=== PATIENT | male | born 1980 | race Caucasian/White ===

== ENCOUNTER → 2017-03-05 | Outpatient (CLI) | payer BC ==
[2017-03-05 12:57] LABS: ALBUMIN 3.9 GM/DL (3.2-5.2); ALKALINE PHOSPHATASE 67 U/L (45-117); ALT/SGPT 42 U/L (12-78); ANION GAP 6 MEQ/L (8-16); AST/SGOT 22 U/L (15-37); BILIRUBIN,TOTAL 0.5 MG/DL (0.2-1.0); BLOOD UREA NITROGEN 12 MG/DL (7-18); CALCIUM LEVEL 8.4 MG/DL (8.5-10.1); CARBON DIOXIDE LEVEL 28 MEQ/L (21-32); CHLORIDE LEVEL 107 MEQ/L (98-107); CHOLESTEROL LEVEL 179 MG/DL (<200); CREATININE FOR GFR 1.03 MG/DL (0.70-1.30); GLOMERULAR FILTRATION RATE > 60.0 (>60); GLUCOSE, FASTING 104 MG/DL (70-105); POTASSIUM SERUM 4.1 MEQ/L (3.5-5.1); SODIUM LEVEL 141 MEQ/L (136-145); TOTAL PROTEIN 6.9 GM/DL (6.4-8.2); TRIGLYCERIDES LEVEL 288 MG/DL (<150)
[2017-03-05 13:24] LABS: WHITE BLOOD COUNT 4.5 K/mm3 (4.0-10.0)
[2017-03-05 13:25] LABS: BASO % 0.6 % (0.0-1.0); EOS # 0.1 K/mm3 (0.0-0.50); EOS % 2.6 % (0.0-3.0); LARGE UNSTAINED CELL # 0.1 K/mm3 (0.0-0.4); LARGE UNSTAINED CELL % 1.6 % (0.0-4.0); LYMPH # 1.6 K/mm3 (1.5-4.5); LYMPH % 33.4 % (24.0-44.0); MEAN CORPUSCULAR HEMOGLOBIN 31.6 pg (27.0-33.0); MEAN CORPUSCULAR HGB CONC 35.4 g/dl (32.0-36.5); MEAN CORPUSCULAR VOLUME 89.2 fl (80.0-96.0); MONO # 0.3 K/mm3 (0.0-0.8); MONO % 7.2 % (0.0-5.0); NEUTROPHILS # 2.4 K/mm3 (1.8-7.7); NEUTROPHILS % 54.6 % (36.0-66.0); PLATELET COUNT, AUTOMATED 166 k/mm3 (150-450); RED CELL DISTRIBUTION WIDTH 12.9 % (11.5-14.5)
== END ==
LOC: M WUC 08:30
PROVIDERS: ATTEND Physician Assistant Medical
DX: I10 Essential (primary) hypertension (principal)

== ENCOUNTER → 2017-04-16 | Outpatient (REF) | payer BC | LOC: M LAB REF 11:53 | PROVIDERS: ATTEND Physician Assistant Medical | DX: K62.5 Hemorrhage of anus and rectum (principal) ==

== ENCOUNTER → 2018-01-23 | Outpatient (CLI) | payer BC ==
[2018-01-23 13:38] LABS: BASO % 0.8 % (0.0-1.0); EOS # 0.1 10^3/uL (0.0-0.50); HEMATOCRIT 43.6 % (42.0-52.0); HEMOGLOBIN 14.9 g/dl (13.5-17.5); IMMATURE GRANULOCYTE % 0.2 % (0-3.0); LYMPH # 2.2 10^3/uL (1.5-4.5); MEAN CORPUSCULAR HEMOGLOBIN 29.6 pg (27.0-33.0); MEAN CORPUSCULAR HGB CONC 34.2 g/dl (32.0-36.5); MEAN CORPUSCULAR VOLUME 86.5 fl (80.0-96.0); MONO # 0.5 10^3/uL (0.0-0.8); MONO % 8.9 % (0.0-5.0); NEUTROPHILS # 2.2 10^3/uL (1.8-7.7); NEUTROPHILS % 44.1 % (36.0-66.0); PLATELET COUNT, AUTOMATED 185 10^3/uL (150-450); RED BLOOD COUNT 5.04 10^6/uL (4.30-6.10); RED CELL DISTRIBUTION WIDTH 12.9 % (11.5-14.5); WHITE BLOOD COUNT 5.1 10^3/uL (4.0-10.0)
[2018-01-23 13:51] LABS: ALBUMIN/GLOBULIN RATIO 1.33 (1.00-1.93); ALKALINE PHOSPHATASE 65 U/L (45-117); ALT/SGPT 38 U/L (12-78); ANION GAP 9 MEQ/L (8-16); AST/SGOT 20 U/L (7-37); BILIRUBIN,TOTAL 0.6 MG/DL (0.2-1.0); BLOOD UREA NITROGEN 17 MG/DL (7-18); CALCIUM LEVEL 8.5 MG/DL (8.5-10.1); CARBON DIOXIDE LEVEL 25 MEQ/L (21-32); CHLORIDE LEVEL 107 MEQ/L (98-107); CHOLESTEROL LEVEL 171 MG/DL (<200); CHOLESTEROL RISK RATIO 5.181 (<5); CREATININE FOR GFR 1.03 MG/DL (0.70-1.30); GLOMERULAR FILTRATION RATE > 60.0 (>60); GLUCOSE, FASTING 100 MG/DL (70-100); HDL CHOLESTEROL 33 MG/DL (>40); LDL CHOLESTEROL 103.8 MG/DL (<100); NON-HDL-C 138 MG/DL; POTASSIUM SERUM 4.1 MEQ/L (3.5-5.1); SODIUM LEVEL 141 MEQ/L (136-145); TRIGLYCERIDES LEVEL 171 MG/DL (<150)
[2018-01-24 09:35] LABS: CONTROL LINE HPYORI INT CTR LINE PRESENT; H PYLORI QUALITATIVE IgG NEGATIVE (NEGATIVE)
== END ==
LOC: M WUC 09:43
DX: K21.9 Gastro-esophageal reflux disease without esophagitis (principal); I10 Essential (primary) hypertension
CPT/HCPCS: 80053

== ENCOUNTER → 2019-04-22 | Outpatient (CLI) | payer BC ==
[2019-04-22 08:30] LABS: BASO % 0.9 % (0.0-1.0); EOS # 0.1 10^3/uL (0.0-0.5); EOS % 2.7 % (0.0-3.0); HEMATOCRIT 47.7 % (42.0-52.0); HEMOGLOBIN 16.4 g/dl (13.5-17.5); LYMPH # 1.8 10^3/uL (1.5-5.0); LYMPH % 40.4 % (24.0-44.0); MEAN CORPUSCULAR HEMOGLOBIN 30.1 pg (27.0-33.0); MEAN CORPUSCULAR HGB CONC 34.4 g/dl (32.0-36.5); MEAN CORPUSCULAR VOLUME 87.5 fl (80.0-96.0); MONO # 0.4 10^3/uL (0.0-0.8); MONO % 9.5 % (0.0-5.0); NEUTROPHILS # 2.1 10^3/uL (1.5-8.5); NEUTROPHILS % 45.8 % (36.0-66.0); PLATELET COUNT, AUTOMATED 183 10^3/uL (150-450); RED BLOOD COUNT 5.45 10^6/uL (4.30-6.10); WHITE BLOOD COUNT 4.5 10^3/uL (4.0-10.0)
[2019-04-22 08:52] LABS: ALT/SGPT 37 U/L (12-78); BILIRUBIN,TOTAL 0.6 MG/DL (0.2-1.0); BLOOD UREA NITROGEN 14 MG/DL (7-18); CALCIUM LEVEL 8.5 MG/DL (8.5-10.1); CARBON DIOXIDE LEVEL 27 MEQ/L (21-32); CHLORIDE LEVEL 106 MEQ/L (98-107); CHOLESTEROL LEVEL 210 MG/DL (<200); CHOLESTEROL RISK RATIO 6.176 (<5); GLOMERULAR FILTRATION RATE > 60.0 (>60); GLUCOSE, FASTING 107 MG/DL (70-100); HDL CHOLESTEROL 34 MG/DL (>40); LDL CHOLESTEROL 115 MG/DL (<100); NON-HDL-C 176 MG/DL; POTASSIUM SERUM 4.4 MEQ/L (3.5-5.1); SODIUM LEVEL 140 MEQ/L (136-145); TOTAL PROTEIN 7.3 GM/DL (6.4-8.2); TRIGLYCERIDES LEVEL 307 MG/DL (<150)
== END ==
LOC: M LAB 07:25
PROVIDERS: ATTEND Physician Assistant Medical
DX: I10 Essential (primary) hypertension (principal)

== ENCOUNTER → 2020-01-06 | Outpatient (CLI) | payer BC ==
[2020-01-06 07:22] LABS: ALT/SGPT 33 U/L (12-78); BILIRUBIN,TOTAL 0.3 MG/DL (0.2-1.0); BLOOD UREA NITROGEN 15 MG/DL (7-18); CALCIUM LEVEL 8.5 MG/DL (8.5-10.1); CARBON DIOXIDE LEVEL 26 MEQ/L (21-32); CHLORIDE LEVEL 106 MEQ/L (98-107); CHOLESTEROL LEVEL 221 MG/DL (<200); CHOLESTEROL RISK RATIO 7.892 (<5); CREATININE FOR GFR 1.08 MG/DL (0.70-1.30); GLOMERULAR FILTRATION RATE > 60.0 (>60); GLUCOSE, FASTING 110 MG/DL (70-100); HDL CHOLESTEROL 28 MG/DL (>40); LDL CHOLESTEROL 121 MG/DL (<100); NON-HDL-C 193 MG/DL; POTASSIUM SERUM 4.2 MEQ/L (3.5-5.1); SODIUM LEVEL 139 MEQ/L (136-145); TRIGLYCERIDES LEVEL 360 MG/DL (<150)
== END ==
LOC: M LAB 06:16
PROVIDERS: ATTEND Physician Assistant
DX: I10 Essential (primary) hypertension (principal)

== ENCOUNTER → 2020-04-15 | Outpatient (CLI) | payer BC ==
[2020-04-15 07:11] LABS: ALT/SGPT 33 U/L (12-78); BILIRUBIN,TOTAL 0.6 MG/DL (0.2-1.0); BLOOD UREA NITROGEN 17 MG/DL (7-18); CALCIUM LEVEL 8.9 MG/DL (8.5-10.1); CARBON DIOXIDE LEVEL 27 MEQ/L (21-32); CHLORIDE LEVEL 105 MEQ/L (98-107); CHOLESTEROL LEVEL 210 MG/DL (<200); CHOLESTEROL RISK RATIO 6.363 (<5); CREATININE FOR GFR 1.03 MG/DL (0.70-1.30); GLOMERULAR FILTRATION RATE > 60.0 (>60); GLUCOSE, FASTING 102 MG/DL (70-100); HDL CHOLESTEROL 33 MG/DL (>40); LDL CHOLESTEROL 129 MG/DL (<100); NON-HDL-C 177 MG/DL; POTASSIUM SERUM 4.4 MEQ/L (3.5-5.1); SODIUM LEVEL 138 MEQ/L (136-145); TOTAL PROTEIN 7.2 GM/DL (6.4-8.2); TRIGLYCERIDES LEVEL 240 MG/DL (<150)
== END ==
LOC: M LAB 06:03
PROVIDERS: ATTEND Physician Assistant
DX: E78.2 Mixed hyperlipidemia (principal)

== ENCOUNTER 2020-08-03 11:13 | Emergency (ER) | payer BC ==
[~2020-08-03] VITALS: Ht 177.8 cm; Wt 113.0 kg
--- OUTSIDE RECORDS SUMMARY | 2020-08-03 11:22 | CCD | Continuity of Care Document ---
Author Author Steven DOBBINS Organization Unknown Address [address] [place] [address] [place] [address] Phone [phone] Care Team Providers Care Pbx Operator Name Role Phone Complete Family Care - Family Medicine AUTM [phone] [employer] [facility] [phone] Problems Description No Information Available Social History Type Date Description Comments Sex Unknown ETOH Use Occasionally consumes alcohol Tobacco Use Start: Unknown Patient has never smoked Smoking Status Reviewed: 07/25/20 Patient has never smoked Allergies, Adverse Reactions, Alerts Description No Known Drug Allergies Medications Active Medications SIG Qnty Indications Ordering Provide r Date Claritin 10mg Tablets 1 by mouth every day Unknown Lisinopril 10mg Tablets 1 by mouth every day Unknown Medications Administered in Office Medication SIG Qnty Indications Ordering Provider Date Allergy Injection 2 Or More Injection Arturo Colunga, P.A. 03/06/2010 Allergy Injection 2 Or More Injection Arturo Colunga, P.A. 02/27/2010 Allergy Injection 2 Or More Injection Arturo Colunga P.A. 02/20/2010 Allergy Injection 2 Or More Injection Arturo Colunga P.A. 02/13/2010 Allergy Injection 2 Or More Injection Arturo Colunga P.A. 02/06/2010 Allergy Injection 2 Or More Injection Arturo Colunga P.A. 01/30/2010 Allergy Injection 2 Or More Injection Arturo Colunga, P.A. 01/23/2010 Allergy Injection 2 Or More Injection Italo Zapata, P.A. 01/17/2010 Allergy Injection 2 Or More Injection Italo Zapata, P.A. 01/10/2010 Allergy Injection 2 Or More Injection Arturo Colunga P.A. 01/02/2010 Allergy Injection 2 Or More Injection Arturo Colunga, P.A. 12/26/2009 Allergy Injection 2 Or More Injection Arturo Colunga, P.A. 12/19/2009 Allergy Injection 2 Or More Injection Italo Zapata, P.A. 12/13/2009 Allergy Injection 2 Or More Injection Arturo Colunga, P.A. 12/05/2009 Allergy Injection 2 Or More Injection Arturo Colunga, P.A. 11/28/2009 Allergy Injection 2 Or More Injection Arturo Colunga, P.A. 11/21/2009 Allergy Injection 2 Or More Injection Arturo Colunga, P.A. 11/14/2009 Allergy Injection 2 Or More Injection Arturo Colunga, P.A. 11/07/2009 Allergy Injection 2 Or More Injection Guilherme Avila, P.A. 11/03/2009 Allergy Injection 2 Or More Injection Arturo Colunga, P.A. 10/31/2009 Allergy Injection 2 Or More Injection Arturo Colunga, P.A. 10/27/2009 Allergy Injection 2 Or More Injection Arturo Colunga, P.A. 10/24/2009 Allergy Injection 2 Or More Injection Arturo Colunga, P.A. 10/20/2009 Allergy Injection 2 Or More Injection Arturo Colunga, P.A. 10/17/2009 Allergy Injection 2 Or More Injection Arturo Colunga, P.A. 10/13/2009 Allergy Injection 2 Or More Injection Arturo Colunga, P.A. 10/10/2009 Allergy Injection 2 Or More Injection Arturo Colunga, P.A. 10/06/2009 Allergy Injection 2 Or More Injection Arturo Colunga, P.A. 10/03/2009 Allergy Injection 2 Or More Injection Arturo Colunga, P.A. 09/29/2009 Allergy Injection 2 Or More Injection Arturo Colunga, P.A. 09/26/2009 Allergy Injection 2 Or More Injection Arturo Colunga, P.A. 09/22/2009 Allergy Injection 2 Or More Injection Arturo Colunga, P.A. 09/19/2009 Allergy Injection 2 Or More Injection Arturo Colunga, P.A. 09/15/2009 Allergy Injection 2 Or More Injection Arturo Colunga, P.A. 09/12/2009 Allergy Injection 2 Or More Injection Arturo Colunga, P.A. 09/08/2009 Allergy Injection 2 Or More Injection Arturo Colunga, P.A. 09/05/2009 Allergy Injection 2 Or More Injection Arturo Colunga, P.A. 09/01/2009 Allergy Injection 2 Or More Injection Arturo Colunga, P.A. 08/29/2009 Allergy Injection 2 Or More Injection Arturo Colunga, P.A. 08/25/2009 Allergy Injection 2 Or More Injection Arturo Colunga, P.A. 08/22/2009 Allergy Injection 2 Or More Injection Arturo Colunga, P.A. 08/18/2009 Allergy Injection 2 Or More Injection Arturo Colunga, P.A. 08/15/2009 Allergy Injection 2 Or More Injection Arturo Colunga, P.A. 08/11/2009 Allergy Injection 2 Or More Injection Arturo Colunga, P.A. 08/08/2009 Allergy Injection 2 Or More Injection Arturo Colunga, P.A. 08/04/2009 Allergy Injection 2 Or More Injection Arturo Colunga, P.A. 08/01/2009 Allergy Injection 2 Or More Injection Arturo Colunga, P.A. 07/28/2009 Allergy Injection Single Injection Italo Zapata, P.A. 05/06/2009 Allergy Injection Single Injection Italo Zapata, P.A. 04/19/2009 Allergy Injection Single Injection Paolo Dockery, GEOFF 03/17/2009 Allergy Injection Single Injection Arturo Colunga, P.A. 02/18/2009 Allergy Injection Single Injection Arturo Colunga, P.A. 01/13/2009 Allergy Injection Single Injection Italo Zapata, P.A. 12/09/2008 Allergy Injection Single Injection Alka Polanco, GEFOF 11/09/2008 Allergy Injection Single Injection Arturo Colunga, P.A. 10/11/2008 Allergy Injection Single Injection Arturo Colunga, P.A. 09/09/2008 Allergy Injection Single Injection Arturo Colunga, P.A. 08/16/2008 Allergy Injection Single Injection Arturo Colunga, P.A. 07/12/2008 Allergy Injection Single Injection Arturo Colunga, P.A. 06/15/2008 Allergy Injection Single Injection Arturo Colunga, P.A. 05/14/2008 Allergy Injection Single Injection Paolo Dockery, GEOFF 04/15/2008 Allergy Injection Single Injection Guilherme Avila, P.A. 03/17/2008 Immunizations Description No Information Available Vital Signs Date Vital Result Comment 07/25/2020 6:26pm BP Systolic 156 mmHg BP Diastolic 90 mmHg Heart Rate 68 /min Respiratory Rate 17 /min O2 % BldC Oximetry 97 % Body Temperature 97.9 F Weight 240.00 lb Height 70 inches 5'10" BMI (Body Mass Index) 34.4 kg/m2 Pain Level 2 04/11/2020 9:29am BP Systolic 132 mmHg BP Diastolic 77 mmHg Heart Rate 65 /min O2 % BldC Oximetry 97 % Body Temperature 98.2 F Weight 240.00 lb Height 70 inches 5'10" BMI (Body Mass Index) 34.4 kg/m2 Pain Level 2 Results Description No Information Available Procedures Description No Information Available Medical Devices Description No Information Available Encounters Type Date Location Provider Dx Diagnosis Office Visit 07/25/2020 5:35p Main Office GEOFF Powell J06 .9 Acute upper respiratory infection, unspecified Z20.828 Contact w and exposure to ot h viral communicable diseases Office Visit 04/11/2020 9:20a Main Office GEOFF Mayer J00 Acute nasopharyngitis [common cold] Z20.828 Contact w and exposure to ot h viral communicable diseases Assessments Date Code Description Provider 07/25/2020 J06.9 Acute upper respiratory infectio n, unspecified GEOFF Powell 07/25/2020 Z20.828 Contact with and (burton spected) exposure to other viral communicable diseases GEOFF Powell 04/11/2020 J00 Acute nasopharyngitis [common co ld] GEOFF Mayer 04/11/2020 Z20.828 Contact with and (burton spected) exposure to other viral communicable diseases GEOFF Mayer Plan of Treatment No Information Available Functional Status Description No Information Available Mental Status Description No Information Available Referrals Description No Information Available
--- OUTSIDE RECORDS SUMMARY | 2020-08-03 11:22 | CCD | Continuity of Care Document ---
Author Author Steven DOBBINS Organization Unknown Address [address] [place] [address] [place] [address] Phone [phone] Care Team Providers Care Muck Hauler Name Role Phone Complete Family Care - Family Medicine AUTM [phone] [employer] [facility] [phone] Problems Description No Information Available Social History [...] P.A. 02/18/2009 Allergy Injection Single Injection Arturo Colnuga, P.A. 01/13/2009 Allergy Injection Single Injection Italo Zapata, P.A. 12/09/2008 Allergy Injection Single Injection Alka Polanco, GEOFF 11/09/2008 Allergy Injection Single Injection Arturo Colunga, [...] Available Vital Signs Date Vital Result Comment 08/01/2020 11:06am BP Systolic 134 mmHg BP Diastolic 84 mmHg Heart Rate 51 /min Respiratory Rate 20 /min O2 % BldC Oximetry 97 % Body Temperature 98.0 F Pain Level 0 07/25/2020 6:26pm BP Systolic 156 mmHg BP [...] communicable diseases Assessments Date Code Description Provider 08/01/2020 Z20.828 Contact with and (burton spected) exposure to other viral communicable diseases Castro Dobbins, PFlorina 07/25/2020 J06.9 Acute upper respiratory infectio n, [...]
--- OUTSIDE RECORDS SUMMARY | 2020-08-03 11:23 | CCD | Continuity of Care Document ---
Author Author Steven MAGAÑA MD Organization Unknown Address [address] [place] [address] [place] [address] Phone [phone] Care Team Providers Care Resin Painter Name Role Phone Complete Family Care - Family Medicine AUTM [phone] [facility] AUTM [phone] Problems Description No Information Available Social History [...] 2 Or More Injection Arturo Colunga, P.A. 02/20/2010 Allergy Injection 2 Or More Injection Arturo Colunga, P.A. 02/13/2010 Allergy Injection 2 Or More Injection Arturo Colunga, P.A. 02/06/2010 Allergy Injection 2 Or More Injection Arturo Colunga, P.A. 01/30/2010 Allergy Injection 2 Or More Injection Arturo Colunga, P.A. 01/23/2010 Allergy Injection 2 Or More Injection Italo Zapata, P.A. 01/17/2010 Allergy Injection 2 Or More Injection Italo Zapata, P.A. 01/10/2010 Allergy Injection 2 Or More Injection Arturo Colunga, P.A. 01/02/2010 Allergy Injection 2 Or More [...] Allergy Injection 2 Or More Injection Arturo Oclunga, P.A. 08/15/2009 Allergy Injection 2 Or More [...] P.A. 04/19/2009 Allergy Injection Single Injection Paolo Magaña, GEOFF 03/17/2009 Allergy Injection Single Injection Arturo [...] P.A. 05/14/2008 Allergy Injection Single Injection Paolo Magaña, GEOFF 04/15/2008 Allergy Injection Single Injection Guilherme [...]
--- OUTSIDE RECORDS SUMMARY | 2020-08-03 11:23 | CCD | Continuity of Care Document ---
Author Author Steven MAGAÑA CT Organization Unknown Address [address] [place] [address] [place] [address] Phone [phone] Care Team Providers Care Foundation Director Name Role Phone Complete Family Care - Family Medicine AUTM [phone] [facility] AUTM [phone] Problems Description No Information Available Social History [...]
--- OUTSIDE RECORDS SUMMARY | 2020-08-03 11:23 | CCD ---
Author Author [facility] Organization [facility] Address Unknown Phone Unavailable Care Team Providers Care Forensic Pathologist Name Role Phone Scordo, M Arin PA Unavailable Unavailable Scordo, M Arin PA Unavailable Unavailable Scordo, M Arin PA Unavailable Unavailable Scordo, M Arin PA Unavailable Unavailable Scordo, M Arin PA Unavailable Unavailable Scordo, M Arin PA Unavailable Unavailable Scordo, M Arin PA Unavailable Unavailable Scordo, M Arin PA Unavailable Unavailable Scordo, M Arin PA Unavailable Unavailable Scordo, M Arin PA Unavailable Unavailable Scordo, M Arin PA Unavailable Unavailable Scordo, M Arin PA Unavailable Unavailable Scordo, M Arin PA Unavailable Unavailable Scordo, M Arin PA Unavailable Unavailable Scordo, M Arin PA Unavailable Unavailable Scordo, M Arin PA Unavailable Unavailable Scordo, M Arin PA Unavailable Unavailable Scordo, M Arin PA Unavailable Unavailable Scordo, M Arin PA Unavailable Unavailable Scordo, M Arin PA Unavailable Unavailable Scordo, M Arin PA Unavailable Unavailable Scordo, M Arin PA Unavailable Unavailable Scordo, M Arin PA Unavailable Unavailable Scordo, M Arin PA Unavailable Unavailable Scordo, M Arin PA Unavailable Unavailable Scordo, M Arin PA Unavailable Unavailable Scordo, M Arin PA Unavailable Unavailable Scordo, M Arin PA Unavailable Unavailable Scordo, M Arin PA Unavailable Unavailable Scordo, M Arin PA Unavailable Unavailable Scordo, M Arin PA Unavailable Unavailable Scordo, M Arin PA Unavailable Unavailable Scordo, M Arin PA Unavailable Unavailable Scordo, M Arin PA Unavailable Unavailable Scordo, M Arin PA Unavailable Unavailable Scordo, M Arin PA Unavailable Unavailable Scordo, M Arin PA Unavailable Unavailable Scordo, M Arin PA Unavailable Unavailable Scordo, M Arin PA Unavailable Unavailable Scordo, M Arin PA Unavailable Unavailable Petrancosta, Bethel Sadia PA-C Unavailable Unavailabl e Petrancosta, Bethel Sadia PA-C Unavailable Unavailabl e Petrancosta, Bethel Sadia PA-C Unavailable Unavailabl e Petrancosta, Bethel Sadia PA-C Unavailable Unavailabl e Petrancosta, Bethel Sadia PA-C Unavailable Unavailabl e Petrancosta, Bethel Sadia PA-C Unavailable Unavailabl e Petrancosta, Bethel Sadia PA-C Unavailable Unavailabl e Petrancosta, Bethel Sadia PA-C Unavailable Unavailabl e Petrancosta, Bethel Sadia PA-C Unavailable Unavailabl e Petrancosta, Bethel Sadia PA-C Unavailable Unavailabl e Petrancosta, Bethel Sadia PA-C Unavailable Unavailabl e Petrancosta, Bethel Sadia PA-C Unavailable Unavailabl e Petrancosta, Bethel Sadia PA-C Unavailable Unavailabl e Petrancosta, Bethel Sadia PA-C Unavailable Unavailabl e Petrancosta, Bethel Sadia PA-C Unavailable Unavailabl e Petrancosta, Bethel Sadia PA-C Unavailable Unavailabl e Petrancosta, Bethel Sadia PA-C Unavailable Unavailabl e Petrancosta, Bethel Sadia PA-C Unavailable Unavailabl e Petrancosta, Bethel Sadia PA-C Unavailable Unavailabl e Petrancosta, Bethel Sadia PA-C Unavailable Unavailabl e Petrancosta, Bethel Sadia PA-C Unavailable Unavailabl e Petrancosta, Bethel Sadia PA-C Unavailable Unavailabl e Petrancosta, Bethel Sadia PA-C Unavailable Unavailabl e RING, K ISMA PA Unavailable Unavailable RING, K ISMA PA Unavailable Unavailable RING, K ISMA PA Unavailable Unavailable RING, K ISMA PA Unavailable Unavailable RING, K ISMA PA Unavailable Unavailable RING, K ISMA PA Unavailable Unavailable RING, K ISMA PA Unavailable Unavailable RING, K ISMA PA Unavailable Unavailable RING, K ISMA PA Unavailable Unavailable RING, K ISMA PA Unavailable Unavailable RING, K ISMA PA Unavailable Unavailable RING, K ISMA PA Unavailable Unavailable RING, K ISMA PA Unavailable Unavailable RING, K ISMA PA Unavailable Unavailable RING, K ISMA PA Unavailable Unavailable RING, K ISMA PA Unavailable Unavailable RING, K ISMA PA Unavailable Unavailable RING, K ISMA PA Unavailable Unavailable RING, K ISMA PA Unavailable Unavailable RING, K ISMA PA Unavailable Unavailable LETTIERE, A SWEETIE PA Unavailable Unavailable LETTIERE, A SWEETIE PA Unavailable Unavailable LETTIERE, A SWEETIE PA Unavailable Unavailable LETTIERE, A SWEETIE PA Unavailable Unavailable LETTIERE, A SWEETIE PA Unavailable Unavailable LETTIERE, A SWEETIE PA Unavailable Unavailable LETTIERE, A SWEETIE PA Unavailable Unavailable LETTIERE, A SWEETIE PA Unavailable Unavailable LETTIERE, A SWEETIE PA Unavailable Unavailable LETTIERE, A SWEETIE PA Unavailable Unavailable LETTIERE, A SWEETIE PA Unavailable Unavailable LETTIERE, A SWEETIE PA Unavailable Unavailable LETTIERE, A SWEETIE PA Unavailable Unavailable LETTIERE, A SWEETIE PA Unavailable Unavailable LETTIERE, A SWEETIE PA Unavailable Unavailable LETTIERE, A SWEETIE PA Unavailable Unavailable LETTIERE, A SWEETIE PA Unavailable Unavailable LETTIERE, A SWEETIE PA Unavailable Unavailable LETTIERE, A SWEETIE PA Unavailable Unavailable LETTIERE, A SWEETIE PA Unavailable Unavailable LETTIERE, A SWEETIE PA Unavailable Unavailable LETTIERE, A SWEETIE PA Unavailable Unavailable LETTIERE, A SWEETIE PA Unavailable Unavailable LETTIERE, A SWEETIE PA Unavailable Unavailable LETTIERE, A SWEETIE PA Unavailable Unavailable LETTIERE, A SWEETIE PA Unavailable Unavailable LETTIERE, A SWEETIE PA Unavailable Unavailable LETTIERE, A SWEETIE PA Unavailable Unavailable LETTIERE, A SWEETIE PA Unavailable Unavailable Re-disclosure Warning The records that you are about to access may contain information from federally-assisted alcohol or drug abuse programs. If such information is present, then the following federally mandated warning applies: This information has been disclosed to you from records protected by federal confidentiality rules (42 CFR part 2). The federal rules prohibit you from making any further disclosure of this information unless further disclosure is expressly permitted by the written consent of the person to whom it pertains or as otherwise permitted by 42 CFR part 2. A general authorization for the release of medical or other information is NOT sufficient for this purpose. The Federal rules restrict any use of the information to criminally investigate or prosecute any alcohol or drug abuse patient.The records that you are about to access may contain highly sensitive health information, the redisclosure of which is protected by Article 27-F of the [place] [facility] Public Health law. If you continue you may have access to information: Regarding HIV / AIDS; Provided by facilities licensed or operated by the [facility] Office of Mental Health; or Provided by the [facility] Office for People With Developmental Disabilities. If such information is present, then the following [facility] mandated warning applies: This information has been disclosed to you from confidential records which are protected by state law. State law prohibits you from making any further disclosure of this information without the specific written consent of the person to whom it pertains, or as otherwise permitted by law. Any unauthorized further disclosure in violation of state law may result in a fine or half-way sentence or both. A general authorization for the release of medical or other information is NOT sufficient authorization for further disc losure. Family History Family Member Name Family Member Gender Family Member Status Date o f Status Description Data Source(s) Unknown Male Problem [facility] ([facility] Encounters Encounter Providers Location Date Indications Data Source(s ) Outpatient Attender: SWEETIE Avila Prim dewey 07/25/2020 04:35:00 PM EST [facility] ([facility], [facility]) Outpatient Attender: Sadia Loyd PA-C Main Office 04/20/2020 08:15:00 AM EDT [facility] ([facility] Outpatient Attender: ISMA Avila Primary 04/11/2020 09:20:00 AM EDT [facility] ([facility], [facility]) Outpatient Attender: Arin TELLEZ Main Office 01/07/2020 08:40:00 AM EDT [facility] ([facility] Immunizations Vaccine Date Status Description Data Source(s) New in 2012. IIV4 04/20/2020 08:18:00 AM EDT completed [facility] ([facility] Medications Medication Brand Name Start Date Product Form Dose Route Admi nistrative Instructions Pharmacy Instructions Status Indications Reaction Description Data Source(s) 40 mg 07/12/2020 12:00:00 AM EST tablet 90 TAKE ONE TABLET BY MOUTH EVERY EVENING FOR BLOOD PRESSURE TAKE ONE TABLET BY MOUTH EVERY EVENING F OR BLOOD PRESSURE SOLD: 07/18/2020 [facility] meloxicam 7.5 MG Oral Tablet Meloxicam 04/20/2020 12:00:00 AM EDT ORAL active [facility] ([facility] meloxicam 7.5 MG Oral Tablet MELOXICAM 04/20/2020 12:00:00 AM EDT tabl et 7 TAKE ONE TABLET BY MOUTH EVERY DAY TAKE ONE TABLET BY MOUTH EVERY DAY SOLD: 04/20/2020 [facility] 40 mg 04/23/2019 12:00:00 AM EDT tablet 90 TAKE ONE TABLET BY MOUTH EVERY EVENING FOR BLOOD PRESSURE TAKE ONE TABLET BY MOUTH EVERY EVENING F OR BLOOD PRESSURE SOLD: 10/28/2019 [facility] 40 mg 04/23/2019 12:00:00 AM EDT tablet 90 TAKE ONE TABLET BY MOUTH EVERY EVENING FOR BLOOD PRESSURE TAKE ONE TABLET BY MOUTH EVERY EVENING F OR BLOOD PRESSURE SOLD: 01/27/2020 [facility] 40 mg 04/23/2019 12:00:00 AM EDT tablet 90 TAKE ONE TABLET BY MOUTH EVERY EVENING FOR BLOOD PRESSURE TAKE ONE TABLET BY MOUTH EVERY EVENING F OR BLOOD PRESSURE SOLD: 08/01/2019 [facility] Insurance Providers Payer name Policy type / Coverage type Policy ID Covered green party ID Covered green party's relationship to taylor Policy [place] Plan Information [employer] [place]/307 [id number] [id number] [place] [place]/307 [id number] [place]/307 [id number] [id number] [facility] [place] [id number] Family Dependent [id number] [facility] ([facility] [id number] Family Dependent [id number] BS [facility] ([facility] [id number] Family Dependent [id number] BS [facility] ([facility] [id number] Family Dependent [id number] BS [facility] ([facility] [id number] Family Dependent [id number] BS [facility] ([facility] [id number] Family Dependent [id number] BS [facility] ([facility] [id number] Family Dependent [id number] [employer] [place] O [id number] [employer] [place] 302/307 [id number] Surgeries/Procedures Procedure Description Date Indications Data Source(s) Brief Emotional/Behav Assessment W/ Scoring Doc Per Standard Inst 01/07/2020 12:00:00 AM EDT [facility] Results ID Date Data Source [id number] 08/01/2020 12:00:00 AM EST [facility] Name Value Range Interpretation Code Description Data Mora rce(s) Supporting Document(s) SARS-CoV2 Rapid Antigen Positive [facility] This lab was reported by [facility]. ID Date Data Source [id number] 07/25/2020 12:00:00 AM EST [facility] Name Value Range Interpretation Code Description Data Mora rce(s) Supporting Document(s) SARS coronavirus 2 Ag Negative [facility] This lab was ordered by [facility] and reported by [facility]. ID Date Data Source [id number] 04/15/2020 06:09:00 AM EDT [facility] ([facility] Name Value Range Interpretation Code Description Data Mora rce(s) Supporting Document(s) Triglycerides Level 240 mg/dL [facility] ([facility] ASCVD 2.8% HDL Cholesterol 33 mg/dL [facility] ASCVD 2.8% Cholesterol Level 210 mg/dL [facility] ([facility] ASCVD 2.8% Cholesterol Risk Ratio 6.363 [facility] ([facility] ASCVD 2.8% Non-HDL-C 177 mg/dL [facility] ASCVD 2.8% LDL Cholesterol 129 mg/dL [facility] ([facility] ASCVD 2.8% ID Date Data Source [id number] 04/15/2020 06:09:00 AM EDT [facility] ([facility] Name Value Range Interpretation Code Description Data Mora rce(s) Supporting Document(s) Glucose, Fasting 102 mg/dL 70-100 [facility] ([facility] ASCVD 2.8% Creatinine For GFR 1.03 mg/dL 0.70-1.30 [facility] ([facility] ASCVD 2.8% Glomerular Filtration Rate Laboratory test result [facility] ([facility] ASCVD 2.8% Blood Urea Nitrogen 17 mg/dL 7-18 [facility] ([facility] ASCVD 2.8% Potassium Serum 4.4 meq/L 3.5-5.1 [facility] ([facility] ASCVD 2.8% Sodium Level 138 meq/L 136-145 [facility] ([facility] ASCVD 2.8% Chloride Level 105 meq/L 98-107 [facility] ASCVD 2.8% Anion Gap 6 meq/L 8-16 [facility] ASCVD 2.8% Calcium Level 8.9 mg/dL 8.5-10.1 [facility] ([facility] ASCVD 2.8% Carbon Dioxide Level 27 meq/L 21-32 [facility] ([facility] ASCVD 2.8% Alt/SGPT 33 U/L 12-78 [facility] ASCVD 2.8% Alkaline Phosphatase 72 U/L 45-117 [facility] ([facility] ASCVD 2.8% Ast/Sgot 20 U/L 7-37 [facility] ASCVD 2.8% Albumin 4.0 GM/DL 3.2-5.2 [facility] ASCVD 2.8% Total Protein 7.2 GM/DL 6.4-8.2 [facility] ([facility] ASCVD 2.8% Bilirubin,Total 0.6 mg/dL 0.2-1.0 [facility] ([facility] ASCVD 2.8% Albumin/Globulin Ratio 1.3 [facility] ([facility] ASCVD 2.8% ID Date Data Source [id number] 01/06/2020 06:24:00 AM EDT [facility] ([facility] Name Value Range Interpretation Code Description Data Mora rce(s) Supporting Document(s) Triglycerides Level 360 mg/dL [facility] HDL Cholesterol 28 mg/dL [facility] LDL Cholesterol 121 mg/dL [facility] Cholesterol Level 221 mg/dL [facility] Cholesterol Risk Ratio 7.892 [facility] Non-HDL-C 193 mg/dL [facility] ID Date Data Source [id number] 01/06/2020 06:24:00 AM EDT [facility] ([facility] Name Value Range Interpretation Code Description Data Mora rce(s) Supporting Document(s) Glucose, Fasting 110 mg/dL 70-100 [facility] Blood Urea Nitrogen 15 mg/dL 7-18 [facility] Creatinine For GFR 1.08 mg/dL 0.70-1.30 [facility] ([facility] Glomerular Filtration Rate Laboratory test result [facility] <content>Units are mL/min/1.73 m2</content>
<content></content>
<content>Chronic Kidney Disease Staging per NK[facility]:</content>
<content></content>
<content>Stage I & II GFR >=60 Normal to Mildly Decreased</content>
<content>Stage III GFR 30-59 Moderately Decreased</content>
<content>Stage IV GFR 15-29 Severely Decreased</content>
<content>Stage V GFR <15 Very Little GFR Left</content>
<content>ESRD GFR <15 on [employer]</content>
<content></content> Potassium Serum 4.2 meq/L 3.5-5.1 [facility] Chloride Level 106 meq/L 98-107 [facility] Sodium Level 139 meq/L 136-145 [facility] Carbon Dioxide Level 26 meq/L 21-32 [facility] Anion Gap 7 meq/L 8-16 [facility] Ast/Sgot 22 U/L 7-37 [facility] Calcium Level 8.5 mg/dL 8.5-10.1 [facility] Alt/SGPT 33 U/L 12-78 [facility] Alkaline Phosphatase 63 U/L 45-117 [facility] Bilirubin,Total 0.3 mg/dL 0.2-1.0 [facility] Total Protein 7.0 GM/DL 6.4-8.2 [facility] Albumin 4.0 GM/DL 3.2-5.2 [facility] Albumin/Globulin Ratio 1.3 [facility] Procedure Social History Code Duration Value Status Description Data Source(s ) Smoking 07/25/2020 12:00:00 AM EST Patient has never smoked co mpleted Patient has never smoked [facility] ([facility]) Smoking 04/20/2020 12:00:00 AM EDT - 07/15/2000 12:00:00 AM EST Patient is a former smoker completed Patient is a former smoker [facility] Vital Signs ID Date Data Source UNK Name Value Range Interpretation Code Description Data Source(s) Body temperature 98.0 [degF] 98.0 [degF] [facility] ([facility]) Oxygen saturation in Arterial blood by Pulse oximetry 97 % 97 % [facility] Respiratory rate 20 /min 20 /min [facility] ( [facility]) Heart rate 51 /min 51 /min [facility] ([facility]) Diastolic blood pressure 84 mm[Hg] 84 mm[Hg] [facility] ([facility]) Systolic blood pressure 134 mm[Hg] 134 mm[Hg] [facility] ([facility]) Body mass index (BMI) [Ratio] 34.4 kg/m2 34.4 k g/m2 [facility] ([facility]) Body height 70 [in_i] 70 [in_i] [facility] ([facility]) 5'10" Body weight 240.00 [lb_av] 240.00 [lb_av] [facility] ([facility]) Body temperature 97.9 [degF] 97.9 [degF] [facility] ([facility]) Oxygen saturation in Arterial blood by Pulse oximetry 97 % 97 % [facility] ([facility]) Respiratory rate 17 /min 17 /min [facility] ( [facility]) Heart rate 68 /min 68 /min [facility] ([facility]) Diastolic blood pressure 90 mm[Hg] 90 mm[Hg] [facility] ([facility]) Systolic blood pressure 156 mm[Hg] 156 mm[Hg] [facility] ([facility]) Body mass index (BMI) [Ratio] 37.4 kg/m2 37.4 k g/m2 [facility] Preemption body weight 160 [lb_av] 160 [lb_av] [facility] ([facility] Oxygen saturation in Arterial blood by Pulse oximetry 98 % 98 % [facility] Body weight 253.12 [lb_av] 253.12 [lb_av] [facility] ([facility] Body height 69.0 [in_i] 69.0 [in_i] [facility] 5'9" Respiratory rate 18 /min 18 /min [facility] ( [facility] Body temperature 97.7 [degF] 97.7 [degF] [facility] Heart rate 60 /min 60 /min [facility] Diastolic blood pressure 74 mm[Hg] 74 mm[Hg] [facility] Systolic blood pressure 140 mm[Hg] 140 mm[Hg] [facility] Body mass index (BMI) [Ratio] 34.4 kg/m2 34.4 k g/m2 [facility] ([facility]) Body height 70 [in_i] 70 [in_i] [facility] ([facility]) 5'10" Body weight 240.00 [lb_av] 240.00 [lb_av] [facility] ([facility]) Body temperature 98.2 [degF] 98.2 [degF] [facility] ([facility]) Oxygen saturation in Arterial blood by Pulse oximetry 97 % 97 % [facility] ([facility]) Heart rate 65 /min 65 /min [facility] ([facility]) Diastolic blood pressure 77 mm[Hg] 77 mm[Hg] [facility] ([facility]) Systolic blood pressure 132 mm[Hg] 132 mm[Hg] [facility] Body mass index (BMI) [Ratio] 38.1 kg/m2 38.1 k g/m2 [facility] Preemption body weight 160 [lb_av] 160 [lb_av] [facility] ([facility] Oxygen saturation in Arterial blood by Pulse oximetry 98 % 98 % [facility] Body weight 258.19 [lb_av] 258.19 [lb_av] [facility] ([facility] Body height 69.0 [in_i] 69.0 [in_i] [facility] ([facility] 5'9" Respiratory rate 16 /min 16 /min [facility] ( [facility] Body temperature 97.2 [degF] 97.2 [degF] [facility] Heart rate 53 /min 53 /min [facility] Diastolic blood pressure 61 mm[Hg] 61 mm[Hg] [facility] Systolic blood pressure 125 mm[Hg] 125 mm[Hg] [facility] ([facility]
[2020-08-03] MEDS ORDERED: LISI40TA4 (11:36)
--- OUTSIDE RECORDS SUMMARY | 2020-08-03 11:53 | CCD ---
Author Author [facility] Organization [facility] Address Unknown Phone Unavailable Care Team Providers Care Carburetor Expert Name Role Phone Scordo, M Arin PA [...] Scordo, M Arin PA Unavailable Unavailable Petrancosta, Wheeler Sadia PA-C Unavailable Unavailabl e Petrancosta, Wheeler Sadia PA-C Unavailable Unavailabl e Petrancosta, Wheeler Sadia PA-C Unavailable Unavailabl e Petrancosta, Wheeler Sadia PA-C Unavailable Unavailabl e Petrancosta, Wheeler Sadia PA-C Unavailable Unavailabl e Petrancosta, Wheeler Sadia PA-C Unavailable Unavailabl e Petrancosta, Wheeler Sadia PA-C Unavailable Unavailabl e Petrancosta, Wheeler Sadia PA-C Unavailable Unavailabl e Petrancosta, Wheeler Sadia PA-C Unavailable Unavailabl e Petrancosta, Wheeler Sadia PA-C Unavailable Unavailabl e Petrancosta, Wheeler Sadia PA-C Unavailable Unavailabl e Petrancosta, Wheeler Sadia PA-C Unavailable Unavailabl e Petrancosta, Wheeler Sadia PA-C Unavailable Unavailabl e Petrancosta, Wheeler Sadia PA-C Unavailable Unavailabl e Petrancosta, Wheeler Sadia PA-C Unavailable Unavailabl e Petrancosta, Wheeler Sadia PA-C Unavailable Unavailabl e Petrancosta, Wheeler Sadia PA-C Unavailable Unavailabl e Petrancosta, Wheeler Sadia PA-C Unavailable Unavailabl e Petrancosta, Wheeler Sadia PA-C Unavailable Unavailabl e Petrancosta, Wheeler Sadia PA-C Unavailable Unavailabl e Petrancosta, Wheeler Sadia PA-C Unavailable Unavailabl e Petrancosta, Wheeler Sadia PA-C Unavailable Unavailabl e Petrancosta, Wheeler Sadia PA-C Unavailable Unavailabl e RING, K [...] is protected by Article 27-F of the [facility] Public Health law. If you continue you may have access to information: Regarding HIV / AIDS; Provided by facilities licensed or operated by the [facility] Office of Mental Health; or Provided by the [facility] Office for People With Developmental Disabilities. If such information is present, then the following [facility] mandated warning applies: This information has been [...] law may result in a fine or snf sentence or both. A general authorization for the release of medical or other information is NOT sufficient authorization for further disc losure. Family History Family Member Name Family Member Gender Family Member Status Date o f Status Description Data Source(s) Unknown Male Problem [facility] ([facility] Encounters Encounter Providers Location Date Indications Data Source(s ) Outpatient Attender: SWETEIE Avila Prim dewey 07/25/2020 04:35:00 PM EST [facility] Outpatient Attender: Sadia Loyd PA-C Main Office 04/20/2020 08:15:00 AM EDT [facility] ([facility] Outpatient Attender: ISMA Avila Primary 04/11/2020 09:20:00 AM EDT [facility] ([facility], [facility]) Outpatient Attender: Arin TELLEZ Main Office 01/07/2020 [...] type / Coverage type Policy ID Covered democrat ID Covered democrat's relationship to taylor Policy Taylor Plan Information [employer] [place]/307 [id number] [place] [id number] [place] [place]/307 [id number] [place] [id number] [place]/307 [id number] [id number] [facility] [id number] Family Dependent [id number] BS Of [facility] ([facility]) [id number] Family Dependent [id number] BS Of [facility] ([facility]) [id number] Family Dependent [id number] BS Of [facility] ([facility]) [id number] Family Dependent [id number] BS Of [facility] ([facility]) [id number] Family Dependent [id number] BS Of [facility] ([facility]) [id number] Family Dependent [id number] BS Of [facility] ([facility]) [id number] Family Dependent [id number] [place] [place] O [place]/307 [id number] [place] [place] O 302/307 [id number] Surgeries/Procedures Procedure Description Date Indications Data Source(s) Brief Emotional/Behav Assessment W/ Scoring Doc Per Standard Inst 01/07/2020 12:00:00 AM EDT [facility] Results ID Date Data Source [id number] 08/01/2020 12:00:00 AM EST [facility] Name Value Range Interpretation Code Description Data Mora rce(s) Supporting Document(s) SARS-CoV2 Rapid Antigen Positive [facility] This lab was reported by [facility]. ID Date Data Source [id number] 07/25/2020 12:00:00 AM EST [facility] Name Value Range Interpretation Code Description Data Mora rce(s) Supporting Document(s) SARS coronavirus 2 Ag Negative [facility] This lab was ordered by [facility] and reported by [facility]. ID Date Data Source [id number] 04/15/2020 06:09:00 AM EDT [facility] ([facility] [...] [facility] ASCVD 2.8% ID Date Data Source [id number] 04/15/2020 06:09:00 AM EDT [facility] ([facility] [...] [facility] ASCVD 2.8% ID Date Data Source [id number] 01/06/2020 06:24:00 AM EDT [facility] ([facility] [...] [facility] ID Date Data Source [id number] 01/06/2020 06:24:00 AM EDT [facility] ([facility] [...] Little GFR Left</content>
<content>ESRD GFR <15 on PATTERN LEASE INSPECTOR</content>
<content></content> Potassium Serum 4.2 meq/L 3.5-5.1 [facility] Chloride Level 106 meq/L 98-107 [...] co mpleted Patient has never smoked [facility] ([facility], [facility]) Smoking 04/20/2020 12:00:00 AM EDT - 07/15/2000 12:00:00 AM EST Patient is a former smoker completed Patient is a former smoker [facility] ([facility] Vital Signs ID Date Data Source UNK Name Value Range Interpretation Code Description Data Source(s) Body temperature 98.0 [degF] 98.0 [degF] [facility] ([facility], [facility]) Oxygen saturation in Arterial blood by Pulse oximetry 97 % 97 % [facility] ([facility], [facility]) Respiratory rate 20 /min 20 /min [facility] ( [facility]) Heart rate 51 /min 51 /min [facility] ([facility], [facility]) Diastolic blood pressure 84 mm[Hg] 84 mm[Hg] [facility] ([facility], [facility]) Systolic blood pressure 134 mm[Hg] 134 mm[Hg] [facility], [facility]) Body mass index (BMI) [Ratio] 34.4 kg/m2 34.4 k g/m2 [facility] ([facility], [facility]) Body height 70 [in_i] 70 [in_i] [facility] ([facility]) 5'10" Body weight 240.00 [lb_av] 240.00 [lb_av] [facility] ([facility], [facility]) Body temperature 97.9 [degF] 97.9 [degF] [facility] ([facility], [facility]) Oxygen saturation in Arterial blood by Pulse oximetry 97 % 97 % [facility] ([facility], [facility]) Respiratory rate 17 /min 17 /min [facility] ( [facility], [facility]) Heart rate 68 /min 68 /min [facility] ([facility], [facility]) Diastolic blood pressure 90 mm[Hg] 90 mm[Hg] [facility] ([facility], [facility]) Systolic blood pressure 156 mm[Hg] 156 mm[Hg] [facility] ([facility], [facility]) Body mass index (BMI) [Ratio] 37.4 kg/m2 37.4 k g/m2 [facility] Corinne body weight 160 [lb_av] 160 [lb_av] [facility] ([facility] Oxygen saturation in Arterial blood by Pulse oximetry 98 % 98 % [facility] Body weight 253.12 [lb_av] 253.12 [...] Systolic blood pressure 140 mm[Hg] 140 mm[Hg] [facility] ([facility] Body mass index (BMI) [Ratio] 34.4 kg/m2 34.4 k g/m2 [facility] Body height 70 [in_i] 70 [in_i] [facility] ([facility]) 5'10" Body weight 240.00 [lb_av] 240.00 [lb_av] [facility] ([facility]) Body temperature 98.2 [degF] 98.2 [degF] [facility] ([facility]) Oxygen saturation in Arterial blood by Pulse oximetry 97 % 97 % [facility] ([facility]) Heart rate 65 /min 65 /min [facility] ([facility]) Diastolic blood pressure 77 mm[Hg] 77 mm[Hg] [facility]) Systolic blood pressure 132 mm[Hg] 132 mm[Hg] [facility] Body mass index (BMI) [Ratio] 38.1 kg/m2 38.1 k g/m2 [facility] Corinne body weight 160 [lb_av] 160 [lb_av] [facility] [...] Systolic blood pressure 125 mm[Hg] 125 mm[Hg] [facility] ([facility]
[2020-08-03 12:43] LABS: BASO % 0.5 % (0.0-1.0); HEMATOCRIT 46.4 % (42.0-52.0); HEMOGLOBIN 15.6 g/dl (13.5-17.5); LYMPH # 0.9 10^3/uL (1.5-5.0); LYMPH % 21.4 % (24.0-44.0); MEAN CORPUSCULAR HGB CONC 33.6 g/dl (32.0-36.5); MEAN CORPUSCULAR VOLUME 86.2 fl (80.0-96.0); MONO # 0.5 10^3/uL (0.0-0.8); MONO % 11.9 % (0.0-5.0); NEUTROPHILS # 2.7 10^3/uL (1.5-8.5); NEUTROPHILS % 64.5 % (36.0-66.0); PLATELET COUNT, AUTOMATED 150 10^3/uL (150-450); RED BLOOD COUNT 5.38 10^6/uL (4.30-6.10); WHITE BLOOD COUNT 4.2 10^3/uL (4.0-10.0)
--- NOTE | 2020-08-03 12:57 | REP ---
INDICATION: COVID+, worsening SOB and pain w/ inspiration. COMPARISON: 09/04/2006 TECHNIQUE: SINGLE PORTABLE AP VIEW OF THE CHEST WAS PERFORMED. FINDINGS: There is a peripheral left upper lobe infiltrate. There is mild cardiomegaly. The mediastinal silhouette is unremarkable. IMPRESSION: Peripheral left upper lobe infiltrate.Mild cardiomegaly. <Electronically signed by Kirt Tompkins > 08/03/20 [id number]
[2020-08-03 13:07] LABS: ALBUMIN 4.1 GM/DL (3.2-5.2); ALT/SGPT 33 U/L (12-78); BILIRUBIN,TOTAL 0.4 MG/DL (0.2-1.0); BLOOD UREA NITROGEN 16 MG/DL (7-18); CALCIUM LEVEL 8.7 MG/DL (8.5-10.1); CARBON DIOXIDE LEVEL 29 MEQ/L (21-32); CHLORIDE LEVEL 107 MEQ/L (98-107); CREATININE FOR GFR 1.04 MG/DL (0.70-1.30); GLOMERULAR FILTRATION RATE > 60.0 (>60); GLUCOSE, FASTING 90 MG/DL (70-100); POTASSIUM SERUM 4.1 MEQ/L (3.5-5.1); SODIUM LEVEL 139 MEQ/L (136-145); TOTAL PROTEIN 7.3 GM/DL (6.4-8.2)
[2020-08-03] MEDS ORDERED: AZITHROMYCIN 250MG TABLET PO ONE (13:15)
[2020-08-03] MEDS ORDERED: cefTRIAXone SOD 1 GM in D5W MINI-BAG PLUS 50 ML IV ONE (13:15)
[2020-08-03] MEDS ORDERED: ISOVUE-370 76% 100ML VIAL As Ordered ONE (15:18)
--- NOTE | 2020-08-03 16:18 | REP ---
INDICATION: ELEVATED D-DIMER, COVID POS, SOB, R/O PE. COMPARISON: Radiograph 08/03/2020. TECHNIQUE: CT angiogram chest performed following the intravenous administration of 100 cc of Isovue 370. Sagittal and coronal reconstruction images are performed. The study is limited due to patient motion. FINDINGS: Lungs: There are patchy diffuse bilateral infiltrates left greater than right. Mediastinum: No adenopathy. Pulmonary arteries: No definite evidence of pulmonary embolism, but again the study is limited by patient motion. Rosie: No adenopathy. Axilla: No adenopathy. Pleura: No effusion. Heart: Mildly enlarged. Thoracic aorta: No aneurysm or dissection. Upper abdominal structures: Unremarkable. Visualized osseous structures: Unremarkable. IMPRESSION: No definite CT evidence of pulmonary embolism. Study is limited by patient motion. Diffuse patchy bilateral infiltrates left greater than right. <Electronically signed by Kirt Tompkins > 08/03/20 [id number]
[2020-08-03] MEDS ORDERED: AZIT-12 PO (16:30)
[2020-08-03 17:15] VITALS: BP 121/71
== END 2020-08-03 17:18 | disposition home or self-care (01) ==
LOC: M ED 11:13
DX: J12.82 Pneumonia due to coronavirus disease 2019 (principal); I10 Essential (primary) hypertension; Z79.899 Other long term (current) drug therapy
CPT/HCPCS: 36415; 71045; 71275; 80053; 85025; 85379; 96365; 99284; J0696; Q9967

== ENCOUNTER → 2021-01-05 | Outpatient (CLI) | payer BC ==
[~2021-01-05] MED LIST: AZIT-12 PO; LISI40TA4
--- NOTE | 2021-01-05 13:36 | REP ---
INDICATION: PAIN. COMPARISON: None. TECHNIQUE: Five views FINDINGS: There is minimal tricompartmental marginal osteophytosis. The compartments are symmetric and well maintained. There is no fracture, dislocation, or subluxation. IMPRESSION: Fairly early chronic changes as described above. <Electronically signed by Tevin Cruz > 01/05/21 [id number]
== END ==
LOC: M SOG 10:46
PROVIDERS: ATTEND Orthopaedic Surgery Sports Medicine
DX: M25.562 Pain in left knee (principal)

== ENCOUNTER → 2021-02-02 | Outpatient (CLI) | payer BC ==
--- NOTE | 2021-02-02 19:38 | REP ---
INDICATION: LT KNEE OTH TEAR OF MEDIAL MENISCUS. COMPARISON: X-ray 01/05/2021 TECHNIQUE: Axial T2 fat suppressed with coronal and sagittal PD and fat suppressed T2 sequences. FINDINGS: Both the ACL and PCL are grossly intact. There is a transverse meniscal ligament of Tena visible anterior to the PCL as anatomic normal variation. The posterior horn of the medial meniscus as oblique grade 3 signal extending to the inferior articular surface best seen on the sagittal PD sequence. I do not see loose body or osteochondral defect in the medial compartment. There is no subchondral edema, osteochondral defect and only minimal grade 1 chondromalacia noted. Medial collateral ligamentous complex was grossly intact. Medial patellar retinaculum shows mild attenuation but no tear and trace fluid deep to the retinaculum abutting the medial femoral condyle in the bursal recess. No definite popliteal fossa cyst. The lateral meniscus shows no evidence of a tear or loose body. Minimal grade 1 chondromalacia without subchondral edema cystic change. Lateral collateral ligamentous complex intact. Lateral patellofemoral retinaculum with some mild the edema deep to it and the bursal recess with small amount of fluid. The proximal tibiofibular articulation is normal. The popliteus tendon grossly unremarkable. Distal femur and tibial plateau show no fracture or focal lesions. The patella shows no bone bruise or fracture. There is chondromalacia patella with some grade 2 changes along the lateral facet. Minimal lateral patellar subluxation of only a few mm noted. Small suprapatellar effusion and fluid in the bursal recess laterally greater than medially. No loose body or osteochondral defect about the joint. A small synovial plica noted centrally and laterally. Quadriceps and patellar tendons are intact. IMPRESSION: 1. A tricompartment chondromalacia with mostly grade 1 changes and some areas of grade 2 change in the lateral patellar facet. Small effusion without loose body or osteochondral defect. Small suprapatellar plica. 2. Posterior horn medial meniscus with grade 3 signal tear communicating obliquely to the inferior articular surface best seen on the sagittal PD sequence. No popliteal fossa cyst 3. Lateral meniscus, cruciate ligaments, collateral ligamentous complexes and extensor mechanism all intact. 4. Some mild attenuation of the medial patellar retinaculum without a tear and a few mm of lateral subluxation of patella. Lateral patellar retinaculum without a tear or attenuation. There is some fluid deep to it in the lateral bursal recess. 5. No bone bruise or fracture. <Electronically signed by Daniel Curry > 02/02/211933
== END ==
LOC: M RAD 17:51
PROVIDERS: ATTEND Orthopaedic Surgery Sports Medicine
DX: S83.242A Other tear of medial meniscus, current injury, left knee, initial encounter (principal); S83.092A Other subluxation of left patella, initial encounter; M94.261 Chondromalacia, right knee; Y92.9 Unspecified place or not applicable; Y93.9 Activity, unspecified; Y99.9 Unspecified external cause status

== ENCOUNTER → 2021-04-28 | Outpatient (CLI) | payer BC | LOC: M LABSMTC 09:19 | PROVIDERS: ATTEND Anesthesiology | DX: Z01.812 Encounter for preprocedural laboratory examination (principal); Z20.822 Contact with and (suspected) exposure to COVID-19 ==

== ENCOUNTER 2021-05-03 07:44 | Day surgery (SDC) | payer BC ==
[~2021-05-03] VITALS: Ht 177.8 cm; Wt 114.2 kg
[~2021-05-03 07:44] MED LIST changes: +LR 1,000 ML IV ONE; +ceFAZolin SOD 2 GM in IV 1 EA IV ONE
--- OUTSIDE RECORDS SUMMARY | 2021-05-03 07:47 | CCD | Continuity of Care Document ---
Author Author Steven CARRENO MD Organization Unknown Address [address] [place] [address] , [facility] [address] [place] [address] Phone [phone] Care Team Providers Care Supervisor Ordnance Truck Installation Name Role Phone Ruby Fournier N.P. AUTM [phone] Problems Active Problems Provider Date Essential hypertension Gigi Carreno MD Onset: 01/05/2021 Social History Type Date Description Comments Sex Unknown ETOH Use 1 A Week Tobacco Use Start: Unknown Denies Smoking Recreational Drug Use Denies Drug Use Allergies, Adverse Reactions, Alerts Description No Known Drug Allergies Medications Active Medications SIG Qnty Indications Ordering Provide r Date Lisinopril 40mg Tablets Take One Tablet By Mouth Every Evening For Blood Pressure Unknown Immunizations Description No Information Available Vital Signs Description No Information Available Results Description No Information Available Procedures Date Code Description Status 02/24/2021 10800 Office/Outpatient Established Mo d MDM 30-39 Min Completed 02/24/2021 82182 Inject/Drain Arthrocentesis Donna r Joint/Bursa/Ganglion Cyst Completed 01/05/2021 06028 Office/Outpatient New Low MDM 30 -44 Minutes Completed Medical Devices Description No Information Available Encounters Type Date Location Provider Dx Diagnosis Office Visit 02/24/2021 3:30p [facility] Gigi Carreno MD S83.242D Oth tear of medial meniscus, current inj ury, left knee, subs M94.262 Chondromalacia, left knee Office Visit 01/05/2021 10:30a [facility] Gigi Carreno MD M25.562 Pain in left knee Assessments Date Code Description Provider 02/24/2021 S83.242D Other tear of medial meniscus, current injury, left knee, subsequent encounter Gigi Carreno MD 02/24/2021 M94.262 Chondromalacia, left knee Gigi Carreno MD 01/05/2021 M25.562 Pain in left knee Gigi Carreno MD Plan of Treatment Future Appointment(s):* 04/07/2021 3:30 pm - Gigi [facility] MD at [facility] 02/24/2021 - Gigi Carreno MD* S83.242D Other tear of medial meniscus, current injury, left knee, subsequent encounter * M94.262 Chondromalacia, left knee Functional Status Description No Information Available Mental Status Description No Information Available Referrals Description No Information Available
--- OUTSIDE RECORDS SUMMARY | 2021-05-03 07:47 | CCD | Continuity of Care Document ---
Author Author Steven CARRENO MD Organization Unknown Address [address] [place] [address] , [facility] [address] [place] [address] Phone [phone] Care Team Providers Care Medical Billing Representative Name Role Phone Ruby Fournier N.P. AUTM [phone] Problems Active Problems Provider Date Essential hypertension [...] Available Procedures Date Code Description Status 02/24/2021 67178 Office/Outpatient Established Mo d MDM 30-39 Min Completed 02/24/2021 80027 Inject/Drain Arthrocentesis Donna r Joint/Bursa/Ganglion Cyst Completed 01/05/2021 87562 Office/Outpatient New Low MDM 30 -44 Minutes Completed Medical Devices Description No Information Available Encounters Type Date Location Provider Dx Diagnosis Office Visit 02/24/2021 3:30p [facility] Gigi Carreno MD S83.242D Oth tear of medial meniscus, current inj ury, left knee, subs Office Visit 01/05/2021 10:[facility] M25.562 Pain in left knee Assessments Date Code Description Provider 02/24/2021 S83.242D Other tear of medial meniscus, current injury, left knee, subsequent encounter Gigi Carreno MD 01/05/2021 M25.562 Pain in left knee Gigi Carreno MD Plan of Treatment Future Appointment(s):* 04/07/2021 3:30 pm - Gigi Carreno MD at [facility] 02/24/2021 - Gigi Carreno MD* S83.242D Other tear of medial meniscus, current injury, left knee, subsequent encounter Functional Status Description No Information Available Mental Status Description No Information Available Referrals Description No Information Available
--- OUTSIDE RECORDS SUMMARY | 2021-05-03 07:47 | CCD | Continuity of Care Document ---
Author Author Steven CARRENO MD Organization Unknown Address [address] [place] [address] , [facility] [address] [place] [address] Phone [phone] Care Team Providers Care Building Services Supervisor Name Role Phone Ruby Fournier N.P. AUTM [phone] Problems Active Problems Provider Date Essential hypertension [...] Information Available Procedures Date Code Description Status 04/07/2021 47988 Office/Outpatient Established Mo d MDM 30-39 Min Completed 02/24/2021 50994 Office/Outpatient Established Mo d MDM 30-39 Min Completed 02/24/2021 09135 Inject/Drain Arthrocentesis Donna r Joint/Bursa/Ganglion Cyst Completed 01/05/2021 84348 Office/Outpatient New Low MDM 30 -44 Minutes Completed Medical Devices Description No Information Available Encounters Type Date Location Provider Dx Diagnosis Office Visit 04/07/2021 3:30p [facility] Gigi Carreno MD S83.242D Oth tear of medial meniscus, current inj ury, left knee, subs Office Visit 02/24/2021 3:30p [facility] S83.242D Oth tear of medial meniscus, current inj ury, left knee, subs M94.262 Chondromalacia, left knee Office Visit 01/05/2021 10:30a [facility] Gigi Carreno MD M25.562 Pain in left knee Assessments Date Code Description Provider 04/07/2021 S83.242D Other tear of medial meniscus, current injury, left knee, subsequent encounter Gigi Carreno MD 02/24/2021 S83.242D Other tear of medial meniscus, current injury, left knee, subsequent encounter Gigi Carreno MD 02/24/2021 M94.262 Chondromalacia, left knee Gigi Carreno MD 01/05/2021 M25.562 Pain in left knee Gigi Carreno MD Plan of Treatment No Information Available Functional Status Description No Information Available Mental Status Description No Information Available Referrals Description No Information Available
--- OUTSIDE RECORDS SUMMARY | 2021-05-03 07:47 | CCD | Continuity of Care Document ---
Author Author Steven CARRENO MD Organization Unknown Address [address] [place] [address] , [facility] 2 [place] [address] Phone [phone] Care Team Providers Care Field Crops Harvest Machine Operator Name Role Phone Ruby Fournier N.P. AUTM [phone] Problems Active Problems Provider Date Essential hypertension [...] Available Procedures Date Code Description Status 04/07/2021 71858 Office/Outpatient Established Mo d MDM 30-39 Min Completed 02/24/2021 75988 Office/Outpatient Established Mo d MDM 30-39 Min Completed 02/24/2021 66440 Inject/Drain Arthrocentesis Donna r Joint/Bursa/Ganglion Cyst Completed 01/05/2021 44850 Office/Outpatient New Low MDM 30 -44 Minutes Completed Medical Devices Description No Information Available Encounters Type Date Location Provider Dx Diagnosis Office Visit 04/07/2021 3:30p [facility] Gigi Carreno MD M23.322 Oth meniscus derang, post horn of medial meniscus, l knee M94.262 Chondromalacia, left knee Office Visit 02/24/2021 3:30p [facility] Gigi Carreno MD S83.242D Oth tear of medial meniscus, current inj ury, left knee, subs M94.262 Chondromalacia, left knee Office Visit 01/05/2021 10:30a [facility] Gigi Carreno MD M25.562 Pain in left knee Assessments Date Code Description Provider 04/07/2021 M23.322 Other meniscus deran gements, posterior horn of medial meniscus, left knee Gigi Carreno MD 04/07/2021 M94.262 Chondromalacia, left knee Gigi Carreno MD 02/24/2021 S83.242D Other tear [...]
--- OUTSIDE RECORDS SUMMARY | 2021-05-03 07:48 | CCD ---
Author Author [facility] Organization [facility] Address Unknown Phone Unavailable Care Team Providers Care Graphite Pan Drier Tender Name Role Phone ARCHANA, Aspen PITT PA Unavailable Unavailable LETTIERE, A SWEETIE PA [...] Unavailable LETTIERE, A SWEETIE PA Unavailable Unavailable Petrancosta, [place] Sadia PA-C Unavailable Unavailabl e Petrancosta, [place] PA-C Unavailable Unavailabl e Petrancosta, [place] PA-C Unavailable Unavailabl e Petrancosta, [place] PA-C Unavailable Unavailabl e Petrancosta, [place] PA-C Unavailable Unavailabl e Petrancosta, [place] PA-C Unavailable Unavailabl e Petrancosta, [place] PA-C Unavailable Unavailabl e Petrancosta, [place] PA-C Unavailable Unavailabl e Petrancosta, [place] PA-C Unavailable Unavailabl e Petrancosta, [place] PA-C Unavailable Unavailabl e Petrancosta, [place] PA-C Unavailable Unavailabl e Petrancosta, [place] PA-C Unavailable Unavailabl e Petrancosta, [place] PA-C Unavailable Unavailabl e Petrancosta, [place] PA-C Unavailable Unavailabl e Petrancosta, [place] PA-C Unavailable Unavailabl e Petrancosta, [place] PA-C Unavailable Unavailabl e Petrancosta, [place] PA-C Unavailable Unavailabl e Petrancosta, [place]ai PA-C Unavailable Unavailabl e Petrancosta, [place] PA-C Unavailable Unavailabl e Petrancosta, [place] PA-C Unavailable Unavailabl e Petrancosta, [place] PA-C Unavailable Unavailabl e Petrancosta, [place] PA-C Unavailable Unavailabl e Petrancosta, [place] PA-C Unavailable Unavailabl e Petrancosta, [place] PA-C Unavailable Unavailabl e Petrancosta, [place] PA-C Unavailable UnavailSachin Brian MD Unavailable Unavailable Sachin Mayorga MD Unavailable Unavailable Sachin Mayorga MD Unavailable Unavailable Sachin Mayorga MD Unavailable Unavailable Sachin Mayorga MD Unavailable Unavailable Sachin Mayorga MD Unavailable Unavailable Sachin Mayorga MD Unavailable Unavailable Sachin Mayorga MD Unavailable Unavailable Sachin Mayorga MD Unavailable Unavailable Sachin Mayorga MD Unavailable Unavailable Sachin Mayorga MD Unavailable Unavailable Mollison, Sachin Yu MD Unavailable Unavailable Mollison, Sachin Yu MD Unavailable Unavailable Mollison, Sachin Yu MD Unavailable Unavailable Mollison, Sachin Yu MD Unavailable Unavailable Mollison, Sachin Yu MD Unavailable Unavailable Mollison, Sachin Yu MD Unavailable Unavailable Mollison, Sachin uY MD Unavailable Unavailable Mollison, Sachin Yu MD Unavailable Unavailable Mollison, Sachin Yu MD Unavailable Unavailable Mollison, Sachin Yu MD Unavailable Unavailable Mollison, W Gigi DAWN Unavailable Unavailable Mollison, W Gigi DAWN Unavailable Unavailable Mollison, W Gigi DAWN Unavailable Unavailable Mollison, W Gigi DAWN Unavailable Unavailable Mollison, W Gigi DAWN Unavailable Unavailable Mollison, W Gigi DAWN Unavailable Unavailable Mollison, W Gigi DAWN Unavailable Unavailable Mollison, W Gigi DAWN Unavailable Unavailable Mollison, W Gigi DAWN Unavailable Unavailable Moy, Aspen Brady MD Unavailable Unavailable Moy, Aspen Brady MD Unavailable Unavailable Moy, Aspen Brady MD Unavailable Unavailable Omy, Aspen Brady MD Unavailable Unavailable Moy, Aspen Brady MD Unavailable Unavailable Moy, Aspen Brady MD Unavailable Unavailable Moy, Aspen Brady MD Unavailable Unavailable Moy, Aspen Brady MD Unavailable Unavailable Moy, Aspen Brady MD Unavailable Unavailable Moy, Aspen Brady MD Unavailable Unavailable Moy, Aspen Brady MD Unavailable Unavailable Moy, Aspen Brady MD Unavailable Unavailable Moy, Aspen Brady MD Unavailable Unavailable Moy, Aspen Brady MD Unavailable Unavailable Moy, Aspen Brady MD Unavailable Unavailable Moy, Aspen Brady MD Unavailable Unavailable Moy, Aspen Brady MD Unavailable Unavailable Moy, Aspen Brady MD Unavailable Unavailable Moy, Aspen Brady MD Unavailable Unavailable Moy, Aspen Brady MD Unavailable Unavailable Moy, Aspen Brady MD Unavailable Unavailable Moy, Aspen Brady MD Unavailable Unavailable Moy, Aspen Brady MD Unavailable Unavailable Moy, Aspen Brady MD Unavailable Unavailable Moy, Aspen Brady MD Unavailable Unavailable Moy, Aspen Brady MD Unavailable Unavailable Moy, Aspen Brady MD Unavailable Unavailable Moy, Aspen Brady MD Unavailable Unavailable Moy, Aspen Brady MD Unavailable Unavailable Moy, Aspen Brady MD Unavailable Unavailable Moy, Aspen Brady MD Unavailable Unavailable Moy, Aspen Brady MD Unavailable Unavailable Moy, Aspen Brady MD Unavailable Unavailable Moy, Aspen Brady MD Unavailable Unavailable Moy, Aspen Brady MD Unavailable Unavailable Moy, Aspen Brady MD Unavailable Unavailable Moy, Aspen Brady MD Unavailable Unavailable Moy, Aspen Brady MD Unavailable Unavailable Moy, Aspen Brady MD Unavailable Unavailable Moy, Aspen Brady MD Unavailable Unavailable Moy, Aspen Brady MD Unavailable Unavailable Moy, Aspen Brady MD Unavailable Unavailable Moy, Aspen Brady MD Unavailable Unavailable Moy, Aspen Brady MD Unavailable Unavailable Moy, Aspen Brady MD Unavailable Unavailable Moy, Aspen Brady MD Unavailable Unavailable Moy, A Caitlyn DAWN Unavailable Unavailable Moy, A Caitlyn DAWN Unavailable Unavailable Moy, A Caitlyn DAWN Unavailable Unavailable Moy, A Caitlyn DAWN Unavailable Unavailable Moy, A Caitlyn DAWN Unavailable Unavailable Moy, A Caitlyn DAWN Unavailable Unavailable Moy, A Caitlyn DAWN Unavailable Unavailable Moy, A Caitlyn DAWN Unavailable Unavailable Moy, A Caitlyn DAWN Unavailable Unavailable Moy, A Caitlyn DAWN Unavailable Unavailable Moy, Aspen Brady MD Unavailable Unavailable Moy, Aspen Brady MD Unavailable Unavailable Moy, Aspen Brady MD Unavailable Unavailable Moy, Aspen Brady MD Unavailable Unavailable Moy, Aspen Brady MD Unavailable Unavailable Moy, A Caitlyn DAWN Unavailable Unavailable Moy, A Caitlyn DAWN Unavailable Unavailable Moy, A Caitlyn DAWN Unavailable Unavailable Moy, A Caitlyn DAWN Unavailable Unavailable Moy, A Caitlyn DAWN Unavailable Unavailable Moy, A Caitlyn DAWN Unavailable Unavailable Omy, A Caitlyn DAWN Unavailable Unavailable Moy, A Caitlyn DAWN Unavailable Unavailable Moy, A Caitlyn DAWN Unavailable Unavailable Moy, A Caitlyn DAWN Unavailable Unavailable Moy, A Caitlyn DAWN Unavailable Unavailable Moy, A Caitlyn DAWN Unavailable Unavailable Moy, A Caitlyn DAWN Unavailable Unavailable Moy, A Caitlyn DAWN Unavailable Unavailable Moy, A Caitlyn DAWN Unavailable Unavailable Moy, A Caitlyn DAWN Unavailable Unavailable Moy, A Caitlyn DAWN Unavailable Unavailable Moy, A Caitlyn DAWN Unavailable Unavailable Moy, A Caitlyn DAWN Unavailable Unavailable Moy, Aspen Brady MD Unavailable Unavailable Moy, Aspen Brady MD Unavailable Unavailable Pleskach, Ruby OLD COIN DEALER Unavailable Unavailable Pleskach, Ruby OLD COIN DEALER Unavailable Unavailable Pleskach, Ruby OLD COIN DEALER Unavailable Unavailable Pleskach, Ruby OLD COIN DEALER Unavailable Unavailable Pleskach, Ruby OLD COIN DEALER Unavailable Unavailable Pleskach, Ruby OLD COIN DEALER Unavailable Unavailable Pleskach, Ruby OLD COIN DEALER Unavailable Unavailable Pleskach, Ruby OLD COIN DEALER Unavailable Unavailable Pleskach, Ruby OLD COIN DEALER Unavailable Unavailable Pleskach, Ruby OLD COIN DEALER Unavailable Unavailable Pleskach, Ruby OLD COIN DEALER Unavailable Unavailable Pleskach, Ruby OLD COIN DEALER Unavailable Unavailable Pleskach, Ruby OLD COIN DEALER Unavailable Unavailable Pleskach, Ruby OLD COIN DEALER Unavailable Unavailable Pleskach, Ruby OLD COIN DEALER Unavailable Unavailable Pleskach, Ruby OLD COIN DEALER Unavailable Unavailable Pleskach, Ruby OLD COIN DEALER Unavailable Unavailable Pleskach, Ruby OLD COIN DEALER Unavailable Unavailable Pleskach, Ruby OLD COIN DEALER Unavailable Unavailable Pleskach, Ruby OLD COIN DEALER Unavailable Unavailable Pleskach, Ruby OLD COIN DEALER Unavailable Unavailable Pleskach, Ruby OLD COIN DEALER Unavailable Unavailable Pleskach, Ruby OLD COIN DEALER Unavailable Unavailable Pleskach, Ruby OLD COIN DEALER Unavailable Unavailable Pleskach, Ruby OLD COIN DEALER Unavailable Unavailable Pleskach, Ruby OLD COIN DEALER Unavailable Unavailable Pleskach, Ruby OLD COIN DEALER Unavailable Unavailable Pleskach, Ruby OLD COIN DEALER Unavailable Unavailable Pleskach, Ruby OLD COIN DEALER Unavailable Unavailable Pleskach, Ruby OLD COIN DEALER Unavailable Unavailable Pleskach, Ruby OLD COIN DEALER Unavailable Unavailable Pleskach, Ruby OLD COIN DEALER Unavailable Unavailable Pleskach, Ruby OLD COIN DEALER Unavailable Unavailable Pleskach, Ruby OLD COIN DEALER Unavailable Unavailable Pleskach, Ruby OLD COIN DEALER Unavailable Unavailable Pleskach, Ruby OLD COIN DEALER Unavailable Unavailable Pleskach, Ruby OLD COIN DEALER Unavailable Unavailable Pleskach, Ruby OLD COIN DEALER Unavailable Unavailable Pleskach, Ruby OLD COIN DEALER Unavailable Unavailable Pleskach, Ruby OLD COIN DEALER Unavailable Unavailable Pleskach, Ruby OLD COIN DEALER Unavailable Unavailable Pleskach, Ruby OLD COIN DEALER Unavailable Unavailable RING, K ISMA PA Unavailable [...] Unavailable RING, K ISMA PA Unavailable Unavailable Re-disclosure Warning The records [...] is protected by Article 27-F of the [facility] Public Health law. If you continue you may have access to information: Regarding HIV / AIDS; Provided by facilities licensed or operated by the [facility] Office of Mental Health; or Provided by the [facility] Office for People With Developmental Disabilities. If such information is present, then the following [facility] mandated warning applies: This information has [...] law may result in a fine or correction sentence or both. A general authorization for the release of medical or other information is NOT sufficient authorization for further disc losure. Family History Family Member Name Family Member Gender Family Member Status Date o f Status Description Data Source(s) Unknown Male Problem [facility] ([facility] Encounters Encounter Providers Location Date Indications Data Source(s ) Outpatient Attender: Gigi Payne/[place]/[facility] 04/07/2021 03:30:00 PM EDT [facility] ([facility] Outpatient Attender: Gigi Payne/[place]/[facility]/Re ind[facility] 02/24/2021 03:30:00 PM EDT [facility] ([facility] Outpatient Attender: Gigi Payne/[place]/Re indl 01/05/2021 10:30:00 AM EDT [facility] ([facility]) Outpatient Attender: Caitlyn Winter MD Main Office 12/23/2020 07:05:0 0 AM EDT [facility] ([facility] Outpatient Attender: Ruby Fournier [facility] Main Office 08/12/2020 0 7:15:00 AM EST [facility] ([facility] Outpatient Attender: SWEETIE Lopez dewey 07/25/2020 04:35:00 PM EST [facility] ([facility] Outpatient Attender: Sadia Loyd PA-C Main Office 04/20/2020 08:15:00 AM EDT [facility] ([facility] Outpatient Attender: ISMA Avila Primary 04/11/2020 09:20:00 AM EDT [facility] ([facility]) Immunizations Vaccine Date Status Description Data Source(s) Covid-19 [employer] 10/12/2020 12:00:00 AM EDT completed [facility] ([facility] COVID-19 VACCINE Agustina 10/12/2020 12:00:00 AM EDT completed [facility] Vaccine Series Complete: YESThis Data wa s Submitted to [facility] Via [employer] in 2012. IIV4 04/20/2020 08:18:00 AM EDT completed [facility] ([facility] Medications Medication Brand Name Start Date Product Form Dose Route Admi nistrative Instructions Pharmacy Instructions Status Indications Reaction Description Data Source(s) meloxicam 7.5 MG Oral Tablet MELOXICAM 08/12/2020 12:00:00 AM EST tabl et 7 TAKE ONE TABLET BY MOUTH EVERY DAY TAKE ONE TABLET BY MOUTH EVERY DAY SOLD: 08/14/2020 [facility] 250 mg 08/03/2020 12:00:00 AM EST tablet 6 TAKE TWO TABLETS ON DAY ONE THEN ONE TABLET ON DAYS 2-5 TAKE TWO TABLETS ON DAY ONE THEN ONE TABLET ON DAYS 2- 5 SOLD: 08/03/2020 [facility] 40 mg 07/12/2020 12:00:00 AM EST tablet 90 TAKE ONE TABLET BY MOUTH EVERY EVENING FOR BLOOD PRESSURE TAKE ONE TABLET BY MOUTH EVERY EVENING F OR BLOOD PRESSURE SOLD: 10/23/2020 [facility] 40 mg 07/12/2020 12:00:00 AM EST tablet 90 TAKE ONE TABLET BY MOUTH EVERY EVENING FOR BLOOD PRESSURE TAKE ONE TABLET BY MOUTH EVERY EVENING F OR BLOOD PRESSURE SOLD: 07/18/2020 [facility] 40 mg 07/12/2020 12:00:00 AM EST tablet 90 TAKE ONE TABLET BY MOUTH EVERY EVENING FOR BLOOD PRESSURE TAKE ONE TABLET BY MOUTH EVERY EVENING F OR BLOOD PRESSURE SOLD: 02/06/2021 [facility] meloxicam 7.5 MG Oral Tablet Meloxicam 04/20/2020 12:00:00 AM EDT ORAL active [facility] ([facility] meloxicam 7.5 MG Oral Tablet MELOXICAM 04/20/2020 12:00:00 AM EDT tabl et 7 TAKE ONE TABLET BY MOUTH EVERY DAY TAKE ONE TABLET BY MOUTH EVERY DAY SOLD: 04/20/2020 [facility] Insurance Providers Payer name Policy type / Coverage type Policy ID Covered green party ID Covered green party's relationship to antoine Policy Antoine Plan Information [employer] [place]/307 [id number] [id number] [employer] [employer]BS B [id number] P [id number] [id number] [place] [place]/307 [id number] [place] [id number] [place]/307 [id number] [id number] BS Of [facility] ([facility]) [id number] Family Dependent [id number] BS Of [facility] ([facility]) [id number] Family Dependent [id number] BS Of [facility] ([facility]) [id number] Family Dependent [id number] BS Of [facility] ([facility]) YNS [id number] Family Dependent [id number] BS Of [facility] ([facility]) YNS [id number] Family Dependent [id number] BS Of [facility] ([facility]) YNS [id number] Family Dependent [id number] BS Of [facility] ([facility]) [id number] Family Dependent [id number] [employer]/307 [id number] [id number] [place] [place] 302/307 [id number] [id number] Problems, Conditions, and Diagnoses Code Display Name Description Problem Type Effective Dates Data Source(s) [id number] Essential hypertension Essential hypertension Problem 01/05/2021 12:00:00 AM EDT [facility] ([facility] ) I10 Essential hypertension Essential hypertension Problem 12/23/2020 12:00:00 AM EDT [facility] ([facility] Surgeries/Procedures Procedure Description Date Indications Data Source(s) OFFICE OUTPATIENT VISIT 25 MINUTES 04/07/2021 12:00:00 AM EDT [facility] ([facility] ) Inject/Drain Arthrocentesis Major Joint/Bursa/Ganglion Cyst 02/24/2021 12:00:00 AM EDT [facility] ([facility]) OFFICE OUTPATIENT VISIT 25 MINUTES 02/24/2021 12:00:00 AM EDT [facility] ([facility]) OFFICE OUTPATIENT NEW 30 MINUTES 01/05/2021 12:00:00 A M EDT [facility] ([facility] ) OFFICE OUTPATIENT NEW 45 MINUTES 01/05/2021 12:00:00 A M EDT [facility] ([facility] ) Brief Emotional/Behav Assessment W/ Scoring Doc Per Standard Inst 12/23/2020 12:00:00 AM EDT [facility] ([facility] Results ID Date Data Source [id number] 08/03/2020 12:13:00 PM EST [facility] Name Value Range Interpretation Code Description Data Mora rce(s) Supporting Document(s) Glucose, Fasting 90 mg/dL 70-100 [facility] Blood Urea Nitrogen 16 mg/dL 7-18 [facility] Creatinine For GFR 1.04 mg/dL 0.70-1.30 [facility] ([facility] Sodium Level 139 meq/L 136-145 [facility] Glomerular Filtration Rate Laboratory test result [facility] ([facility] <content>Units are mL/min/1.73 m2</content>
<content></content>
<content>Chronic Kidney Disease Staging per NKF:</content>
<content></content>
<content>Stage I & II GFR >=60 Normal to Mildly Decreased</content>
<content>Stage III GFR 30-59 Moderately Decreased</content>
<content>Stage IV GFR 15-29 Severely Decreased</content>
<content>Stage V GFR <15 Very Little GFR Left</content>
<content>ESRD GFR <15 on ADULT LITERACY TEACHER</content>
<content></content> Potassium Serum 4.1 meq/L 3.5-5.1 [facility] Chloride Level 107 meq/L 98-107 [facility] Carbon Dioxide Level 29 meq/L 21-32 [facility] ([facility] Calcium Level 8.7 mg/dL 8.5-10.1 [facility] Anion Gap 3 meq/L 8-16 [facility] Alt/SGPT 33 U/L 12-78 [facility] Ast/Sgot 20 U/L 7-37 [facility] Bilirubin,Total 0.4 mg/dL 0.2-1.0 [facility] Alkaline Phosphatase 77 U/L 45-117 [facility] Total Protein 7.3 GM/DL 6.4-8.2 [facility] Albumin 4.1 GM/DL 3.2-5.2 [facility] Albumin/Globulin Ratio 1.3 [facility] ID Date Data Source [id number] 08/03/2020 12:13:00 PM EST [facility] ([facility] Name Value Range Interpretation Code Description Data Mora rce(s) Supporting Document(s) Fibrin D-dimer FEU [Mass/volume] in Platelet poor plasma 887.11 ng/mL [facility] ID Date Data Source [id number] 08/03/2020 12:13:00 PM EST [facility] ([facility] Name Value Range Interpretation Code Description Data Mora rce(s) Supporting Document(s) Red Blood Count 5.38 10 4.30-6.10 [facility] White Blood Count 4.2 10 4.0-10.0 [facility] Hemoglobin 15.6 g/dL 13.5-17.5 [facility] Hematocrit 46.4 % 42.0-52.0 [facility] Mean Corpuscular Volume 86.2 fl 80.0-96.0 M [facility] ([facility] Mean Corpuscular HGB Conc 33.6 g/dL 32.0-36.5 [facility] Mean Corpuscular Hemoglobin 29.0 pg 27.0-33.0 [facility] Red Cell Distribution Width 12.4 % 11.5-14.5 [facility] Platelet Count, Automated 150 10 150-450 [facility] Lymph % 21.4 % 24.0-44.0 [facility] Neutrophils % 64.5 % 36.0-66.0 [facility] [place] % 11.9 % 0.0-5.0 [facility] Eos % 1.0 % 0.0-3.0 [facility] Immature Granulocyte % 0.7 % 0-3.0 [facility] Baso % 0.5 % 0.0-1.0 [facility] Nucleated Red Blood Cell % 0.0 % 0-0 [facility] ([facility] Neutrophils # 2.7 10 1.5-8.5 [facility] Lymph # 0.9 10 1.5-5.0 [facility] [place] # 0.5 10 0.0-0.8 [facility] Eos # 0.0 10 0.0-0.5 [facility] Baso # 0.0 10 0.0-0.2 [facility] ID Date Data Source [id number] 08/01/2020 12:00:00 AM EST [facility] Name Value Range Interpretation Code Description Data Mora rce(s) Supporting Document(s) SARS-CoV2 Rapid Antigen Positive [facility] This lab was reported by [facility]. ID Date Data Source [id number] 07/25/2020 12:00:00 AM EST [facility] Name Value Range Interpretation Code Description Data Mora rce(s) Supporting Document(s) SARS coronavirus 2 Ag Negative [facility] This lab was ordered by [facility] and reported by [facility]. ID Date Data Source [id number] 04/15/2020 06:09:00 AM EDT [facility] ([facility] Name Value Range Interpretation Code Description Data Mora rce(s) Supporting Document(s) Triglycerides Level 240 mg/dL [facility] ([facility] ASCVD 2.8% Cholesterol Level 210 mg/dL [facility] ([facility] ASCVD 2.8% Non-HDL-C 177 mg/dL [facility] ([facility] ASCVD 2.8% LDL Cholesterol 129 mg/dL [facility] ([facility] ASCVD 2.8% HDL Cholesterol 33 mg/dL [facility] ASCVD 2.8% Cholesterol Risk Ratio 6.363 [facility] ([facility] ASCVD 2.8% ID Date Data Source [id number] 04/15/2020 06:09:00 AM EDT [facility] ([facility] Name Value Range Interpretation Code Description Data Mora rce(s) Supporting Document(s) Glucose, Fasting 102 mg/dL 70-100 [facility] ([facility] ASCVD 2.8% Creatinine For GFR 1.03 mg/dL 0.70-1.30 [facility] ([facility] ASCVD 2.8% Blood Urea Nitrogen 17 mg/dL 7-18 [facility] ([facility] ASCVD 2.8% Glomerular Filtration Rate Laboratory test result [facility] ([facility] ASCVD 2.8% Potassium Serum 4.4 meq/L 3.5-5.1 [facility] ([facility] ASCVD 2.8% Sodium Level 138 meq/L 136-145 [facility] ASCVD 2.8% Anion Gap 6 meq/L 8-16 [facility] ASCVD 2.8% Carbon Dioxide Level 27 meq/L 21-32 [facility] ([facility] ASCVD 2.8% Chloride Level 105 meq/L 98-107 [facility] ASCVD 2.8% Alt/SGPT 33 U/L 12-78 [facility] ASCVD 2.8% Calcium Level 8.9 mg/dL 8.5-10.1 [facility] ([facility] ASCVD 2.8% Ast/Sgot 20 U/L 7-37 [facility] ASCVD 2.8% Alkaline Phosphatase 72 U/L 45-117 [facility] ([facility] ASCVD 2.8% Bilirubin,Total 0.6 mg/dL 0.2-1.0 [facility] ([facility] ASCVD 2.8% Albumin 4.0 GM/DL 3.2-5.2 [facility] ASCVD 2.8% Albumin/Globulin Ratio 1.3 [facility] ([facility] ASCVD 2.8% Total Protein 7.2 GM/DL 6.4-8.2 [facility] ([facility] ASCVD 2.8% Procedure Social History Code Duration Value Status Description Data Source(s ) Smoking 12/23/2020 12:00:00 AM EDT - 07/15/2000 12:00:00 AM EST Patient is a former smoker completed Patient is a former smoker [facility] ([facility] Smoking 07/25/2020 12:00:00 AM EST Patient has never smoked co mpleted Patient has never smoked [facility] ([facility] Vital Signs ID Date Data Source UNK Name Value Range Interpretation Code Description Data Source(s) Diastolic blood pressure 63 mm[Hg] 63 mm[Hg] [facility] Systolic blood pressure 126 mm[Hg] 126 mm[Hg] M [facility] ([facility] Oxygen saturation in Arterial blood by Pulse oximetry 98 % 98 % [facility] [place] body weight 160 [lb_av] 160 [lb_av] [facility] T ([facility] Body mass index (BMI) [Ratio] 36.8 kg/m2 36.8 k g/m2 [facility] Heart rate 47 /min 47 /min [facility] Body temperature 96.7 [degF] 96.7 [degF] [facility] Respiratory rate 16 /min 16 /min [facility] ( [facility] Body height 69.0 [in_i] 69.0 [in_i] [facility] ([facility] 5'9" Body weight 249.38 [lb_av] 249.38 [lb_av] [facility] T ([facility] Respiratory rate 18 /min 18 /min [facility] ( [facility] Body temperature 97.6 [degF] 97.6 [degF] [facility] Heart rate 49 /min 49 /min [facility] Body height 69.0 [in_i] 69.0 [in_i] [facility] 5'9" Systolic blood pressure 132 mm[Hg] 132 mm[Hg] M [facility] ([facility] Diastolic blood pressure 77 mm[Hg] 77 mm[Hg] [facility] Body weight 248.38 [lb_av] 248.38 [lb_av] [facility] T ([facility] [place] body weight 160 [lb_av] 160 [lb_av] [facility] T ([facility] Body mass index (BMI) [Ratio] 36.7 kg/m2 36.7 k g/m2 [facility] Oxygen saturation in Arterial blood by Pulse oximetry 98 % 98 % [facility] Systolic blood pressure 134 mm[Hg] 134 mm[Hg] [facility] ([facility], [facility]) Diastolic blood pressure 84 mm[Hg] 84 mm[Hg] [facility] ([facility], [facility]) Heart rate 51 /min 51 /min [facility] ([facility], [facility]) Respiratory rate 20 /min 20 /min [facility] ( [facility], [facility]) Oxygen saturation in Arterial blood by Pulse oximetry 97 % 97 % [facility] ([facility], [facility]) Body temperature 98.0 [degF] 98.0 [degF] [facility] ([facility], [facility]) Systolic blood pressure 156 mm[Hg] 156 mm[Hg] [facility] ([facility], [facility]) Oxygen saturation in Arterial blood by Pulse oximetry 97 % 97 % [facility] ([facility], [facility]) Body temperature 97.9 [degF] 97.9 [degF] [facility] ([facility], [facility]) Body weight 240.00 [lb_av] 240.00 [lb_av] [facility] ([facility], [facility]) Diastolic blood pressure 90 mm[Hg] 90 mm[Hg] [facility] ([facility], [facility]) Heart rate 68 /min 68 /min [facility] ([facility], [facility]) Respiratory rate 17 /min 17 /min [facility] ( [facility], [facility]) Body height 70 [in_i] 70 [in_i] [facility] ([facility], [facility]) 5'10" Body mass index (BMI) [Ratio] 34.4 kg/m2 34.4 k g/m2 [facility] ([facility], [facility]) Respiratory rate 18 /min 18 /min [facility] ( [facility] Body temperature 97.7 [degF] 97.7 [degF] [facility] ([facility] Systolic blood pressure 140 mm[Hg] 140 mm[Hg] [facility] ([facility] Body height 69.0 [in_i] 69.0 [in_i] [facility] ([facility] 5'9" Body weight 253.12 [lb_av] 253.12 [lb_av] [facility] ([facility] Diastolic blood pressure 74 mm[Hg] 74 mm[Hg] [facility] ([facility] Heart rate 60 /min 60 /min [facility] ([facility] Oxygen saturation in Arterial blood by Pulse oximetry 98 % 98 % [facility] ([facility] [place] body weight 160 [lb_av] 160 [lb_av] [facility] ([facility] Body mass index (BMI) [Ratio] 37.4 kg/m2 37.4 k g/m2 [facility] ([facility] Systolic blood pressure 132 mm[Hg] 132 mm[Hg] [facility] ([facility], [facility]) Diastolic blood pressure 77 mm[Hg] 77 mm[Hg] [facility] ([facility], [facility]) Heart rate 65 /min 65 /min [facility] ([facility], [facility]) Oxygen saturation in Arterial blood by Pulse oximetry 97 % 97 % [facility] ([facility], [facility]) Body temperature 98.2 [degF] 98.2 [degF] [facility] ([facility], [facility]) Body weight 240.00 [lb_av] 240.00 [lb_av] [facility] ([facility], [facility]) Body height 70 [in_i] 70 [in_i] [facility] ([facility], [facility]) 5'10" Body mass index (BMI) [Ratio] 34.4 kg/m2 34.4 k g/m2 [facility] ([facility], [facility])
[2021-05-03] MEDS ORDERED: MIDAZOLAM INJ 2MG/2ML VIAL (J2250 PER 1MG) As Ordered ONE (08:04)
[2021-05-03] MEDS ORDERED: fentaNYL 100 MCG/2 ML INJECTION (J3010) As Ordered ONE (08:04)
[2021-05-03] MEDS ORDERED: propofoL 200 MG/20 ML VIAL As Ordered ONE ×2 (08:05→09:29)
[2021-05-03] MEDS ORDERED: LIDOCAINE 2% 100MG/5ML SDV (FOR ANES.) As Ordered ONE (08:05)
[2021-05-03] MEDS ORDERED: dexameTHASONE 4 MG/ML 1ML VIAL (J1100 PER 1MG) As Ordered ONE (08:05)
[2021-05-03] MEDS ORDERED: ONDANSETRON 4MG/2ML VIAL As Ordered ONE (08:05)
[2021-05-03] MEDS ORDERED: ROPIvacaine 0.5% 30ML INJECTION (J2795 PER 1MG) As Ordered ONE (08:56)
[2021-05-03] MEDS ORDERED: ACETAMINOPHEN 1000MG 100ML IV BTL (OFIRMEV) (J0131 PER 10MG) As Ordered ONE (09:22)
[2021-05-03] MEDS ORDERED: DESFLURANE 240 ML INHALANT As Ordered ONE (09:37)
[2021-05-03] MEDS ORDERED: KETOROLAC 60MG 2ML VIAL As Ordered ONE (09:40)
[2021-05-03] MEDS ORDERED: oxyCODONE 5MG TAB PO PRN (10:10)
[2021-05-03] MEDS ORDERED: LR 1,000 ML IV SCH ×2 (10:10→10:55)
[2021-05-03] MEDS ORDERED: ONDANSETRON 4MG/2ML VIAL IV PRN ×2 (10:10→10:55)
[2021-05-03] MEDS ORDERED: HYDROMORPHONE HCL 0.5 MG/ 0.5 ML SYRINGE (J1170 PER 1) IV PRN (10:10)
--- NOTE | 2021-05-03 10:12 | ROOPDOC ---
[facility] Report Of Operation Report of Operation PREPROCEDURE DIAGNOSES: Left knee medial meniscus tear. POSTPROCEDURE DIAGNOSES: Same. PROCEDURE PERFORMED: Left knee arthroscopy, partial medial meniscectomy. SURGEON: Dr. Gigi Carreno MD FLARE BREAKER: None ANESTHESIA: General anesthesia Dr. Iyer. 10 cc local anesthetic. ESTIMATED BLOOD LOSS: Approximately 30 mL. COMPLICATIONS: None. REMARKS: None. FINDINGS: Medial meniscus tear. Parrot beak type tear at the junction middle and posterior 1/3rd area. SPECIMENS REMOVED: None PROCEDURE NOTE: This 40-year-old man had mechanical symptoms as well as MRI evidence of medial meniscus tear and medial compartment chondromalacia. We discussed the pros and cons risks and benefits of nonsurgical versus surgical management. I saw and assessed the patient in preoperative holding. I marked the left lower extremity. He understood wished to proceed with surgery and had no further questions.. DESCRIPTION OF PROCEDURE: Patient was brought to the operating room theater. He was placed supine on the operating room table. General anesthesia was induced. 2 g of IV Ancef was administered prior to the start of the case. Tourniquet applied to left thigh appropriately padded. Stress positioner used to the patient's left side. Left lower extremity prepped and draped in the usual sterile fashion with chlorhexidine-based prep solution allowing over 3 minutes drying time prior to draping. Preoperative timeout performed to confirm the site patient and surgery. I began by elevating the limb inflated the tourniquet to 250 mmHg. Made standard anterolateral and anteromedial arthroscopy portals. I performed a thorough diagnostic arthroscopy. Cartilage at the patellofemoral joint was nor mal, perhaps very mild Grade 1 softening at the trochlear groove. Patella tracking normally. There was a medial plica that I removed. Normal medial lateral gutters no loose body. ACL and PCL appeared normal. Lateral meniscus as well as cartilage on the lateral side of the knee appeared normal stable and solid to probing. Cartilage on the medial side of the knee appeared to have two areas MFC mid aspect Grade 2-3 changes, gently debrided to stable rim 2 cartilage flaps. Cartilage on tibia side medial side of knee normal in appearance. Small radial type parrot beak tear junction middle to posterior 1/3rd of medial meniscus. I used basket punch and shaving instruments to perform partial meniscectomy, to stable margins. After this the remaining meniscus was stable and solid to probing no obvious unstable fragments. I ensured no flipped fragments of the meniscus below the joint line in that area. Roots appear normal. Arthroscopy pictures taken and saved onto the system throughout the case and case terminat ed. Tourniquet let down. 10 cc local anesthetic around portal sites. Wounds cleaned with wet and dry dressing followed application of Steri-Strips Adaptic 4 x 8 gauze abdominal pad dressing and overwrapped with sterile 6 inch Diogenes bandage. Drapes removed patient woken up with her general anesthetic transferred off the operating room table and taken to postanesthetic care unit in stable condition. All sponge needle instrument counts were correct no complications. Estimated blood loss 30 cc. Plan for the patient range of motion and weightbearing as tolerated crutches as needed for the first 2 weeks. Prescription has been sent in electronically to the pharmacy of choice. Postoperative wound instructions were given. It was recommended to keep the wound clean and dry. Dressing changes as needed postoperative day 1, 2 and as needed. It was reinforced with the patient that they should call us or be seen immediately for redness, drainage, or fever. Risk factors for harms from taking opioid medications discussed and assessed including but not limited to personal or family history of substance use disorder, anxiety or depression, , age 65 or older, COPD or other underlying respiratory conditions, and renal or hepatic insufficiency. Discussed with patient concerns and determined any harms they may experience or be currently experiencing such as nausea or constipation, feeling sedated or confused, breathing interruptions during sleep, or taking or craving more opioids than prescribed or difficulty controlling use (addiction). Discussed early warning signs of overdose including confusion, sedation, slurred speech, abnormal gait. GIGI CARRENO MD May 03, 2021 10:12
[2021-05-03] MEDS: fentaNYL 100 MCG/2 ML INJECTION (J3010) IV PRN ×4 (10:17→10:36)
[2021-05-03] MEDS ORDERED: ACETAMINOPHEN TAB 650MG DOSE (2X325MG) PO PRN (10:55)
[2021-05-03] MEDS ORDERED: MORPHINE 2 MG/ML 1ML VIAL (J2270) IV PRN (10:55)
[2021-05-03] MEDS ORDERED: PERCOCET 5MG/325MG TAB PO PRN (10:55)
[2021-05-03 12:10] VITALS: BP 112/70
--- NOTE | 2021-05-04 13:59 | ECGEPIP ---
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
== END 2021-05-03 12:25 | disposition home or self-care (01) ==
LOC: M SDC 07:44
PROVIDERS: ATTEND Orthopaedic Surgery Sports Medicine
DX: S83.242A Other tear of medial meniscus, current injury, left knee, initial encounter (principal); X58.XXXA Exposure to other specified factors, initial encounter; Y92.89 Other specified places as the place of occurrence of the external cause; M94.262 Chondromalacia, left knee; I10 Essential (primary) hypertension; Z79.899 Other long term (current) drug therapy; Z72.0 Tobacco use
CPT/HCPCS: 29881; 93005; 97116; J0131; J0690; J1100; J1885; J2250; J2405; J2795; J3010

== ENCOUNTER → 2021-07-01 | Outpatient (CLI) | payer BC ==
[~2021-07-01] MED LIST changes: -LR 1,000 ML IV ONE; -ceFAZolin SOD 2 GM in IV 1 EA IV ONE
[2021-07-01 09:26] LABS: BASO # 0.1 10^3/uL (0.0-0.2); BASO % 1.2 % (0.0-1.0); EOS # 0.2 10^3/uL (0.0-0.5); EOS % 3.3 % (0.0-3.0); HEMATOCRIT 46.2 % (42.0-52.0); HEMOGLOBIN 15.5 g/dl (13.5-17.5); LYMPH # 2.2 10^3/uL (1.5-5.0); LYMPH % 44.5 % (24.0-44.0); MEAN CORPUSCULAR HEMOGLOBIN 29.8 pg (27.0-33.0); MEAN CORPUSCULAR HGB CONC 33.5 g/dl (32.0-36.5); MEAN CORPUSCULAR VOLUME 88.7 fl (80.0-96.0); MONO # 0.4 10^3/uL (0.0-0.8); NEUTROPHILS % 41.8 % (36.0-66.0); PLATELET COUNT, AUTOMATED 171 10^3/uL (150-450); RED BLOOD COUNT 5.21 10^6/uL (4.30-6.10); WHITE BLOOD COUNT 4.9 10^3/uL (4.0-10.0)
[2021-07-01 09:58] LABS: ALBUMIN 3.9 GM/DL (3.2-5.2); ALT/SGPT 38 U/L (12-78); BILIRUBIN,TOTAL 0.7 MG/DL (0.2-1.0); BLOOD UREA NITROGEN 13 MG/DL (7-18); CALCIUM LEVEL 8.5 MG/DL (8.5-10.1); CARBON DIOXIDE LEVEL 28 MEQ/L (21-32); CHLORIDE LEVEL 108 MEQ/L (98-107); CHOLESTEROL LEVEL 205 MG/DL (<200); CHOLESTEROL RISK RATIO 6.406 (<5); CREATININE FOR GFR 0.87 MG/DL (0.70-1.30); GLOMERULAR FILTRATION RATE > 60.0 (>60); GLUCOSE, FASTING 103 MG/DL (70-100); HDL CHOLESTEROL 32 MG/DL (>40); LDL CHOLESTEROL 128 MG/DL (<100); NON-HDL-C 173 MG/DL; POTASSIUM SERUM 4.5 MEQ/L (3.5-5.1); SODIUM LEVEL 142 MEQ/L (136-145); TRIGLYCERIDES LEVEL 227 MG/DL (<150)
== END ==
LOC: M LAB 08:45
PROVIDERS: ATTEND Family Medicine
DX: I10 Essential (primary) hypertension (principal)

== ENCOUNTER → 2023-03-07 | Outpatient (CLI) | payer BC ==
[2023-03-07 09:48] LABS: BASO # 0.1 10^3/uL (0.0-0.2); BASO % 1.1 % (0.0-1.0); EOS # 0.1 10^3/uL (0.0-0.5); EOS % 2.1 % (0.0-3.0); HEMATOCRIT 46.7 % (42.0-52.0); HEMOGLOBIN 16.1 g/dl (13.5-17.5); LYMPH # 1.8 10^3/uL (1.5-5.0); LYMPH % 38.1 % (24.0-44.0); MEAN CORPUSCULAR HEMOGLOBIN 30.1 pg (27.0-33.0); MEAN CORPUSCULAR HGB CONC 34.5 g/dl (32.0-36.5); MEAN CORPUSCULAR VOLUME 87.3 fl (80.0-96.0); MONO # 0.6 10^3/uL (0.0-0.8); MONO % 12.2 % (2.0-8.0); NEUTROPHILS # 2.2 10^3/uL (1.5-8.5); NEUTROPHILS % 45.9 % (36.0-66.0); PLATELET COUNT, AUTOMATED 188 10^3/uL (150-450); RED BLOOD COUNT 5.35 10^6/uL (4.30-6.10); WHITE BLOOD COUNT 4.8 10^3/uL (4.0-10.0)
[2023-03-07 10:10] LABS: ALBUMIN 4.3 G/DL (3.2-5.2); ALKALINE PHOSPHATASE 63 U/L (46-116); ALT/SGPT 61 U/L (7.0-40); AST/SGOT 29 U/L (<34); BILIRUBIN,TOTAL 0.8 MG/DL (0.3-1.2); BLOOD UREA NITROGEN 17 MG/DL (9-23); CALCIUM LEVEL 9.1 MG/DL (8.5-10.1); CARBON DIOXIDE LEVEL 26 MMOL/L (20-31); CHLORIDE LEVEL 105 MMOL/L (98-107); CHOLESTEROL LEVEL 203 MG/DL (<200); CHOLESTEROL RISK RATIO 6.13 (<5); CREATININE FOR GFR 0.88 MG/DL (0.70-1.30); GLOMERULAR FILTRATION RATE > 60.0 (>60); GLUCOSE, FASTING 93 MG/DL (60-100); HDL CHOLESTEROL 33.1 MG/DL (>40); LDL CHOLESTEROL 111.1 MG/DL (<100); NON-HDL-C 169.9 MG/DL; POTASSIUM SERUM 4.4 MMOL/L (3.5-5.1); SODIUM LEVEL 138 MMOL/L (136-145); TOTAL PROTEIN 7.4 G/DL (5.7-8.2); TRIGLYCERIDES LEVEL 294 MG/DL (<150)
== END ==
LOC: M LAB 09:17
PROVIDERS: ATTEND Nurse Practitioner Family
DX: I10 Essential (primary) hypertension (principal)

== ENCOUNTER → 2024-03-06 | Outpatient (CLI) | payer BC ==
[2024-03-06 09:16] LABS: ALBUMIN 4.3 G/DL (3.2-5.2); ALKALINE PHOSPHATASE 64 U/L (46-116); ALT/SGPT 37 U/L (7.0-40); AST/SGOT 23 U/L (<34); BILIRUBIN,TOTAL 0.9 MG/DL (0.3-1.2); BLOOD UREA NITROGEN 16 MG/DL (9-23); CALCIUM LEVEL 8.7 MG/DL (8.5-10.1); CARBON DIOXIDE LEVEL 26 MMOL/L (20-31); CHLORIDE LEVEL 108 MMOL/L (98-107); CHOLESTEROL LEVEL 209 MG/DL (<200); CHOLESTEROL RISK RATIO 6.92 (<5); CREATININE FOR GFR 0.97 MG/DL (0.70-1.30); GLOMERULAR FILTRATION RATE > 60.0 (>60); GLUCOSE, FASTING 94 MG/DL (60-100); HDL CHOLESTEROL 30.2 MG/DL (>40); LDL CHOLESTEROL 131.6 MG/DL (<100); NON-HDL-C 178.8 MG/DL; SODIUM LEVEL 138 MMOL/L (136-145); TOTAL PROTEIN 7.1 G/DL (5.7-8.2); TRIGLYCERIDES LEVEL 236 MG/DL (<150)
== END ==
LOC: M LAB 08:08
PROVIDERS: ATTEND Nurse Practitioner Family
DX: I10 Essential (primary) hypertension (principal); E78.2 Mixed hyperlipidemia

== ENCOUNTER 2024-06-03 11:54 | Day surgery (SDC) | payer BC ==
[~2024-06-03] VITALS: Ht 175.3 cm; Wt 116.1 kg
[~2024-06-03 11:54] MED LIST changes: -LISI40TA4; +LISI40TA4 PO; +NS 250 ML IV ONE
[2024-06-03 13:14] VITALS: TEMP 97
[2024-06-03 13:33] VITALS: BP 135/69; O2SAT 98
== END 2024-06-03 13:38 | disposition home or self-care (01) ==
LOC: M OPP 11:54
PROVIDERS: ATTEND Surgery
DX: Z12.11 Encounter for screening for malignant neoplasm of colon (principal); Z12.12 Encounter for screening for malignant neoplasm of rectum; K57.30 Diverticulosis of large intestine without perforation or abscess without bleeding; K64.0 First degree hemorrhoids; I10 Essential (primary) hypertension; Z79.899 Other long term (current) drug therapy

== ENCOUNTER → 2024-07-24 | Outpatient (CLI) | payer OTHER ==
[~2024-07-24] MED LIST changes: -NS 250 ML IV ONE
[2024-07-24 18:12] LABS: BASO # 0.1 10^3/uL (0.0-0.2); BASO % 1.1 % (0.0-1.0); EOS # 0.2 10^3/uL (0.0-0.5); EOS % 2.9 % (0.0-3.0); HEMATOCRIT 44.3 % (42.0-52.0); HEMOGLOBIN 15.7 g/dl (13.5-17.5); LYMPH # 2.5 10^3/uL (1.5-5.0); MEAN CORPUSCULAR HEMOGLOBIN 30.8 pg (27.0-33.0); MEAN CORPUSCULAR HGB CONC 35.4 g/dl (32.0-36.5); MONO # 0.7 10^3/uL (0.0-0.8); MONO % 10.6 % (2.0-8.0); NEUTROPHILS % 46.1 % (36.0-66.0); PLATELET COUNT, AUTOMATED 195 10^3/uL (150-450); RED BLOOD COUNT 5.09 10^6/uL (4.30-6.10); WHITE BLOOD COUNT 6.5 10^3/uL (4.0-10.0)
[2024-07-24 18:52] LABS: ALKALINE PHOSPHATASE 60 U/L (40-129); ALT/SGPT 58 U/L (7.0-40); AST/SGOT 32 U/L (<34); BILIRUBIN,TOTAL 0.4 MG/DL (0.3-1.2); BLOOD UREA NITROGEN 16 MG/DL (9-23); CALCIUM LEVEL 9.3 MG/DL (8.5-10.1); CARBON DIOXIDE LEVEL 26 MMOL/L (20-31); CHLORIDE LEVEL 105 MMOL/L (98-107); CREATININE FOR GFR 0.91 MG/DL (0.70-1.30); FREE T4 1.04 NG/DL (0.89-1.76); GLOMERULAR FILTRATION RATE > 60.0 (>60); GLUCOSE, FASTING 83 MG/DL (60-100); MAGNESIUM LEVEL 1.9 MG/DL (1.8-2.4); POTASSIUM SERUM 4.2 MMOL/L (3.5-5.1); SODIUM LEVEL 141 MMOL/L (136-145); THYROID STIMULATING HORMONE 2.156 uIU/ML (0.55-4.78); TOTAL 25(OH) VITAMIN D 13.5 NG/ML (20.0-100.0); TOTAL PROTEIN 7.1 G/DL (5.7-8.2)
== END ==
LOC: M LAB 16:50
PROVIDERS: ATTEND Nurse Practitioner Family
DX: R53.83 Other fatigue (principal)

== ENCOUNTER → 2025-03-05 | Outpatient (CLI) | payer OTHER ==
[~2025-03-05] MED LIST changes: +LISI40TA10 PO; -LISI40TA4 PO
[2025-03-05 09:28] LABS: ALT/SGPT 33 U/L (7.0-40); AST/SGOT 25 U/L (<34); CALCIUM LEVEL 8.7 MG/DL (8.5-10.1); CARBON DIOXIDE LEVEL 25 MMOL/L (20-31); CHLORIDE LEVEL 105 MMOL/L (98-107); CHOLESTEROL LEVEL 205 MG/DL (<200); CHOLESTEROL RISK RATIO 5.97 (<5); CREATININE FOR GFR 0.92 MG/DL (0.70-1.30); GLOMERULAR FILTRATION RATE > 90.0 (>60); LDL CHOLESTEROL 125.7 MG/DL (<100); NON-HDL-C 170.7 MG/DL; POTASSIUM SERUM 4.2 MMOL/L (3.5-5.1); SODIUM LEVEL 140 MMOL/L (136-145); TRIGLYCERIDES LEVEL 225 MG/DL (<150)
== END ==
LOC: M LAB 07:50
PROVIDERS: ATTEND Nurse Practitioner Family
DX: E78.2 Mixed hyperlipidemia (principal)

== ENCOUNTER → 2025-03-18 | Outpatient (CLI) | payer OTHER | LOC: M RAD 10:51 | PROVIDERS: ATTEND Nurse Practitioner Family | DX: M25.562 Pain in left knee (principal) ==